=== PATIENT | male | born 1990 | race American Indian/Alaskan Native ===

== ENCOUNTER 2020-06-24 04:40 | Inpatient (IN) | payer OTHER ==
[2020-06-24] MEDS ORDERED: NITROGLYCERIN 0.4 MG TAB SUBL SL ONE (04:51)
--- NOTE | 2020-06-24 05:20 | XRay Report ---
CHEST 1 VIEW INDICATION: CP COMPARISON: None FINDINGS: Support devices: None Heart: Normal Lungs/Pleura: No acute pulmonary or pleural findings. IMPRESSION: 1. No acute disease. Signer Name: Suresh Tolbert MD Signed: 06/24/2020 5:15 AM Workstation Name: [id number]
--- NOTE | 2020-06-24 05:20 | Emergency Department Report ---
<RONNIE العلي - Last Filed: 06/24/20 07:52> ED Chest Pain HPI - General Chief Complaint: Chest Pain Stated Complaint: CHEST PAIN Time Seen by Provider: 06/24/20 04:49 - Related Data Allergies Allergy/AdvReac Type Severity Reaction Status Date / Time ibuprofen Allergy Itching Verified 06/24/20 08:52 ED Course - Reevaluation(s) Reevaluation #1: 06/24/20 07:52 One of our paramedics it walk past the patient's room and her gym make a loud noise. Patient did not appear to have a brief episode that appeared to be a tonic-clonic seizure. Patient's head slumped to the side and he stopped moving and his monitor showed V. fib. Tobacco Stripper Hand checked pulse at the carotid and femoral region and felt no pulse. Patient was defibrillated once and immediately regained pulse. He then jerked violently and appeared to have a approximately 10-second seizure. Patient was placed on a nonrebreather. Blood pressure and heart rate were adequate. Was setting up to intubate the patient to protect his airway but before intubation I did tap the patient on his chest and asked his name and he stated his full name. So we will hold off on intubation. Patient is admitting Has been called and is at bedside. ED Medical Decision Making - Lab Data Result diagrams: 06/24/20 05:24 06/24/20 05:24 ED Disposition Clinical Impression: Acute chest pain, Angina at rest, Hypertensive urgency Disposition: [id number] OP ADMIT IP TO THIS HOSP Condition: Serious <JUSTIN GUEVARA - Last Filed: 06/24/20 10:35> ED Chest Pain HPI - General Source: patient Mode of arrival: Stretcher Limitations: No Limitations - History of Present Illness Initial Comments: This is a 30-year-old -Syrian male who presents to the emergency department via EMS from home with complaint of midsternal to left-sided chest pain that started around 3 AM and woke him from sleep. He describes the chest pain as sharp in nature, 10 out of 10 in intensity and it does not radiate. He has some mild shortness of breath. This is also associated with some nausea with an episode of vomiting. The patient received a full dose aspirin in route with EMS. The patient is a former smoker. He presents with extremely elevated blood pressure, although the patient had some hypotension with EMS initially. The patient's mother from an [place] at the age of 41. He is an occasional marijuana smoker but denies any other illicit drug use. No recent travel or sick contacts at home. Heart Score - HEART Score History: Moderately suspicious EKG: Non-specific Age: < 45 Risk factors: 1-2 risk factors Troponin: 1-3x normal limit HEART Score: 4 - EKG Read Time Time EKG Completed: 04:45 EKG Read Time: 04:46 - Critical Actions Critical Actions: 4-6 pts:12-16.6% risk of adverse cardiac event. Should be admitted ED Review of Systems ROS: Stated complaint: CHEST PAIN Other details as noted in HPI Comment: All other systems reviewed and negative Constitutional: denies: chills, fever Eyes: denies: eye pain, vision change ENT: denies: ear pain, throat pain Respiratory: shortness of breath. denies: cough Cardiovascular: chest pain. denies: edema Gastrointestinal: nausea, vomiting. denies: abdominal pain Genitourinary: denies: dysuria, discharge Musculoskeletal: denies: back pain, arthralgia Skin: denies: rash, lesions Neurological: denies: headache, weakness ED Past Medical Hx - Past Medical History Previous Medical History?: Yes Hx Hypertension: Yes - Surgical History Past Surgical History?: Yes Hx Appendectomy: Yes - Social History Smoking Status: Former Smoker Substance Use Type: Marijuana ED Physical Exam - General Limitations: No Limitations - Other Other exam information: GENERAL: The patient is well-developed well-nourished. He appears uncomfortable due to pain. HENT: Normocephalic. Atraumatic. Patient has moist mucous membranes. EYES: Extraocular motions are intact. NECK: Supple. Trachea is midline. CHEST/LUNGS: Clear to auscultation. Mild tachypnea but no accessory muscle use. There is no respiratory distress noted. Chest pain is not reproducible to palpation. HEART/CARDIOVASCULAR: Regular. There is no tachycardia. There is no murmur. ABDOMEN: Abdomen is soft, nontender. Patient has normal bowel sounds. SKIN: Skin is warm and dry. NEURO: The patient is awake, alert, and oriented. The patient is cooperative. Normal speech. MUSCULOSKELETAL: There is no tenderness or deformity. There is no limitation range of motion. ED Course Vital Signs 04/04/1506/24/20 06/24/20 04:42 04:46 05:04 Pulse Rate 58 L 59 L 51 L Respiratory 16 37 H 20 Rate Blood Pressure 183/136 Blood Pressure [Left] O2 Sat by Pulse 100 100 100 Oximetry 06/24/20 06/24/20 06/24/20 05:06 05:08 05:10 Pulse Rate 58 L 64 48 L Respiratory 11 L 14 20 Rate Blood Pressure Blood Pressure [Left] O2 Sat by Pulse 100 100 100 Oximetry 06/24/20 06/24/20 06/24/20 05:12 05:16 05:20 Pulse Rate 53 L 57 L 56 L Respiratory 17 11 L Rate Blood Pressure 179/124 165/121 Blood Pressure [Left] O2 Sat by Pulse 100 100 Oximetry 06/24/20 06/24/20 06/24/20 05:30 05:46 06:00 Pulse Rate 73 51 L 47 L Respiratory 16 18 19 Rate Blood Pressure 165/121 176/127 156/110 Blood Pressure [Left] O2 Sat by Pulse 99 100 100 Oximetry 06/24/20 06/24/20 06/24/20 06:16 06:26 06:30 Pulse Rate 48 L 48 L 62 Respiratory 21 18 19 Rate Blood Pressure 172/120 169/118 169/118 Blood Pressure [Left] O2 Sat by Pulse 100 100 100 Oximetry 06/24/20 06/24/20 06/24/20 06:46 07:00 07:16 Pulse Rate 64 64 62 Respiratory 27 H 26 H 23 Rate Blood Pressure 172/120 158/93 158/107 Blood Pressure [Left] O2 Sat by Pulse 100 100 100 Oximetry 06/24/20 06/24/20 06/24/20 07:30 07:38 07:40 Pulse Rate 70 130 H 212 H Respiratory 15 26 H Rate Blood Pressure 159/107 168/117 Blood Pressure [Left] O2 Sat by Pulse 100 Oximetry 06/24/20 06/24/20 06/24/20 07:50 08:00 08:05 Pulse Rate 67 69 Respiratory 22 26 H 24 Rate Blood Pressure 156/93 Blood Pressure 146/103 [Left] O2 Sat by Pulse 100 100 100 Oximetry 06/24/20 06/24/20 08:34 08:53 Pulse Rate 70 70 Respiratory 16 16 Rate Blood Pressure Blood Pressure 151/100 151/100 [Left] O2 Sat by Pulse 100 100 Oximetry - Consultations Consultation #1: 06/24/20 04:55 The EKG sent by EMS showed ST elevations to the anterolateral leads. This EKG was sent to the newspaper reporter composition weatherboard installer, Dr Barriga, who did not feel it was consistent with a ST elevation ME. When the patient arrived we did o ur own EKG that appeared very similar with the same areas of ST elevation. I sent the second EKG to Dr Barriga and I spoke with him again to let him know the patient's risk factors include a family history in which his mother from an [place] at 41 years old. He once again did not feel this EKG was consistent with an ME and we do not need to activate the lift slab operator for a STEMI. LIT score - Lit Score Age > 65: (0) No Aspirin use within the Past 7 Days: (1) Yes 3 or more CAD Risk Factors: (0) No 2 or more Angina events in past 24 hrs: (1) Yes Known CAD with more than 50% Stenosis: (0) No Elevated Cardiac Markers: (1) Yes ST Deviation Greater than 0.5mm: (1) Yes LIT Score: 4 ED Medical Decision Making - Lab Data Result diagrams: 06/24/20 05:24 06/24/20 05:24 - EKG Data -: EKG Interpreted by Me EKG shows normal: sinus rhythm (PACs), axis (Left axis deviation), intervals, QRS complexes (Q waves to the anteroseptal leads), ST-T waves (ST elevation to the anterolateral leads) Rate: normal - EKG Data When compared to previous EKG there are: previous EKG unavailable Interpretation: other (Sinus rhythm with a rate of 63 bpm. Left axis deviation. Q waves to the anteroseptal leads. ST elevations to the anterolateral leads.) 06/24/20 05:19 EKG discussed with the newspaper reporter, Dr. Barriga, who does not feel that this is consistent with an ST elevation ME. - Radiology Data Radiology results: image reviewed interpreted by me: Chest x-ray does not show any pneumonia, pleural effusion, pneumothorax or any acute process. - Medical Decision Making This patient presented to the ED via EMS after waking up with mid-sternal to left sided chest pain about 3 AM or so. The initial EKG showed anterolateral ST elevations and was sent by EMS for review. Interventional cardiology composition weatherboard installer took a look at the EKG and did not feel it was consistent with a STEMI. The patient arrived and an EKG was immediately done and it looked very similar to the EKG done by EMS. This EKG, along with the patient's past medical history and family history were again shared with interventional cardiology, but they did not feel it was a STEMI and no lift slab operator activation at that time. The patient was given a SL Nitro without much relief of his blood pressure or pain. He was then given a dose of IV analgesia for his pain, and a dose of IV Hydralazine for his hypertension, with some improvement. Chest x-ray did not show any pneumonia, pleural effusions or pneumothorax. The patient's labs have been most unremarkable thus far including CBC, BMP and the first troponin came back equivocal at 0.021. He has a heart score of 4 and a moderate LIT score. He will be admitted to the hospital for further evaluation and treatment. A cardiology consult has been placed. The patient has been accepted for admission by the hospitalist, Dr Keller. Critical care attestation.: If time is entered above; I have spent that time in minutes in the direct care of this critically ill patient, excluding procedure time. ED Disposition Is pt being admited?: Yes Time of Disposition: 06:44
[2020-06-24] MEDS ORDERED: ONDANSETRON 4 MG/2 ML INJ IV ONE (05:30)
[2020-06-24] MEDS ORDERED: MORPHINE 4 MG/1 ML INJ IV ONE (05:30)
[2020-06-24 06:07] LABS: Basophils # (Auto) 0.1 K/mm3 (0.0-0.1); Eosinophils # (Auto) 0.1 K/mm3 (0.0-0.4); Eosinophils % (Auto) 1.4 % (0.0-4.3); Hemoglobin 14.7 gm/dl (11.8-15.2); Lymphocytes # (Auto) 4.4 K/mm3 (1.2-5.4); Lymphocytes % (Auto) 49.5 % (13.4-35.0); Mean Corpuscular HGB Conc 35 % (32-34); Mean Corpuscular Volume 93 fl (84-94); Monocytes # (Auto) 0.8 K/mm3 (0.0-0.8); Platelet Count 402 K/mm3 (140-440); Red Blood Count 4.54 M/mm3 (3.65-5.03); Red Cell Distribution Width 13.1 % (13.2-15.2)
[2020-06-24 06:14] LABS: Alanine Aminotransferase 12 units/L (7-56); Albumin 4.2 g/dL (3.9-5); BUN/Creatinine Ratio 10; Blood Urea Nitrogen 8 mg/dL (9-20); Calcium 8.7 mg/dL (8.4-10.2); Hemolysis Index 9
[2020-06-24 06:19] LABS: INR 1.06 (0.87-1.13); Partial Thromboplastin Time 25.5 Sec. (24.2-36.6)
[2020-06-24] MEDS ORDERED: hydrALAZINE 20 MG/1 ML INJ IV ONE (06:21)
[2020-06-24] MEDS ORDERED: SUCCINYLCHOLINE CHLORIDE 200 MG/10 ML INJ MDV ONE (07:42)
[2020-06-24] MEDS ORDERED: ETOMIDATE 20 MG/10 ML INJ IV ONE ×2 (07:42→08:26)
[2020-06-24] MEDS ORDERED: SUCCINYLCHOLINE CHLORIDE 200 MG/10 ML INJ MDV IV ONE (08:27)
[2020-06-24] MEDS ORDERED: AMIODARONE 150 MG/3 ML INJ IV ONE ×2 (08:34→09:10)
--- NOTE | 2020-06-24 08:35 | History and Physical Report ---
History of Present Illness Date of examination: 06/24/20 Date of admission: 06/24/20 06:45 Chief complaint: cp History of present illness: 30-year-old -Senegalese male who presents to the emergency department via EMS from home with complaint of midsternal to left-sided chest pain that started around 3 AM and woke him from sleep. Per ER physician, he described the chest pain as sharp in nature, 10 out of 10 in intensity and it does not radiate. He also reported that he had some mild shortness of breath. This was associated with some nausea with an episode of vomiting. The patient received a full dose aspirin in route with EMS. The patient is a former smoker. He presented with extremely elevated blood pressure, although the patient had some hypotension with EMS initially. The patient's mother from an [place] at the age of 41. He is an occasional marijuana smoker but denies any other illicit drug use. While in the emergency room, patient was noted by the nurse to have V. fib arrest that lasted for approximately 45 seconds with status post defibrillation x1. ER physician reports patient had immediate ROSC and responded appropriately to q uestions. Upon my evaluation, patient was somnolent but follows all commands and responsive. Patient continued to complain of chest pain and no other complaints. Patient denies any fever chills. No cough or cold-like symptoms. Past History Past Medical History: No medical history Past Surgical History: No surgical history Social history: no significant social history Family history: CAD (Mother of an SC at 41) Medications and Allergies Allergies Allergy/AdvReac Type Severity Reaction Status Date / Time No Known Allergies Allergy Unverified 06/24/20 05:00 Active Meds: Active Medications Etomidate (Etomidate 20 Mg/10 Ml Inj) 20 mg IV ONCE ONE Stop: 06/24/20 08:27 Last Admin: 06/24/20 08:28 Dose: Not Given Documented by: Succinylcholine Chloride (Succinylcholine Chloride 200 Mg/10 Ml Inj Mdv) 100 mg IV ONCE ONE Stop: 06/24/20 08:28 Last Admin: 06/24/20 08:29 Dose: Not Given Documented by: Review of Systems All systems: negative Exam - Constitutional Vitals: Temp Pulse Resp BP Pulse Ox 69 24 146/103 100 06/24/20 08:05 06/24/20 08:05 06/24/20 08:05 06/24/20 08:05 General appearance: Present: no acute distress, well-nourished - EENT Eyes: Present: PERRL ENT: hearing intact, clear oral mucosa - Neck Neck: Present: supple, normal ROM - Respiratory Respiratory effort: normal Respiratory: bilateral: CTA - Cardiovascular Heart Sounds: Present: S1 & S2. Absent: rub, click - Extremities Extremities: pulses symmetrical, No edema Peripheral Pulses: within normal limits - Abdominal General gastrointestinal: Present: soft, non-tender, non-distended, normal bowel sounds Male genitourinary: Present: normal - Integumentary Integumentary: Present: clear, warm, dry - Musculoskeletal Musculoskeletal: gait normal, strength equal bilaterally - Psychiatric Psychiatric: appropriate mood/affect, intact judgment & insight - Neurologic Neurologic: CNII-XII intact, moves all extremities HEART Score - HEART Score EKG: Non-specific Age: < 45 Risk factors: 1-2 risk factors Troponin: Troponin T 0.021 ng/mL (0.00-0.029) 06/24/20 05:24 Troponin: 1-3x normal limit - Critical Actions Critical Actions: 4-6 pts:12-16.6% risk of adverse cardiac event. Should be admitted Results - Labs CBC & Chem 7: 06/24/20 05:24 06/24/20 05:24 Labs: Laboratory Last Values WBC 8.9 K/mm3 (4.5-11.0) 06/24/20 05:24 RBC 4.54 M/mm3 (3.65-5.03) 06/24/20 05:24 Hgb 14.7 gm/dl (11.8-15.2) 06/24/20 05:24 Hct 42.0 % (35.5-45.6) 06/24/20 05:24 MCV 93 fl (84-94) 06/24/20 05:24 MCH 33 pg (28-32) H 06/24/20 05:24 MCHC 35 % (32-34) H 06/24/20 05:24 RDW 13.1 % (13.2-15.2) L 06/24/20 05:24 Plt Count 402 K/mm3 (140-440) 06/24/20 05:24 Lymph % (Auto) 49.5 % (13.4-35.0) H 06/24/20 05:24 Lipscomb % (Auto) 9.0 % (0.0-7.3) H 06/24/20 05:24 Eos % (Auto) 1.4 % (0.0-4.3) 06/24/20 05:24 Baso % (Auto) 1.0 % (0.0-1.8) 06/24/20 05:24 Lymph # (Auto) 4.4 K/mm3 (1.2-5.4) 06/24/20 05:24 Lipscomb # (Auto) 0.8 K/mm3 (0.0-0.8) 06/24/20 05:24 Eos # (Auto) 0.1 K/mm3 (0.0-0.4) 06/24/20 05:24 Baso # (Auto) 0.1 K/mm3 (0.0-0.1) 06/24/20 05:24 Seg Neutrophils % 39.1 % (40.0-70.0) L 06/24/20 05:24 Seg Neutrophils # 3.5 K/mm3 (1.8-7.7) 06/24/20 05:24 PT 13.7 Sec. (12.2-14.9) 06/24/20 05:24 INR 1.06 (0.87-1.13) 06/24/20 05:24 APTT 25.5 Sec. (24.2-36.6) 06/24/20 05:24 Sodium 137 mmol/L (137-145) 06/24/20 05:24 Potassium 3.5 mmol/L (3.6-5.0) L 06/24/20 05:24 Chloride 101.9 mmol/L (98-107) 06/24/20 05:24 Carbon Dioxide 21 mmol/L (22-30) L 06/24/20 05:24 Anion Gap 18 mmol/L 06/24/20 05:24 BUN 8 mg/dL (9-20) L 06/24/20 05:24 Creatinine 0.8 mg/dL (0.8-1.3) 06/24/20 05:24 Estimated GFR > 60 ml/min 06/24/20 05:24 BUN/Creatinine Ratio 10 % 06/24/20 05:24 Glucose 137 mg/dL (75-100) H 06/24/20 05:24 Calcium 8.7 mg/dL (8.4-10.2) 06/24/20 05:24 Total Bilirubin 0.60 mg/dL (0.1-1.2) 06/24/20 05:24 AST 19 units/L (5-40) 06/24/20 05:24 ALT 12 units/L (7-56) 06/24/20 05:24 Alkaline Phosphatase 69 units/L (35-129) 06/24/20 05:24 Troponin T 0.021 ng/mL (0.00-0.029) 06/24/20 05:24 Total Protein 7.5 g/dL (6.3-8.2) 06/24/20 05:24 Albumin 4.2 g/dL (3.9-5) 06/24/20 05:24 Albumin/Globulin Ratio 1.3 % 06/24/20 05:24 Assessment and Plan Assessment and plan: V. fib arrest. Etiology is unknown. Cardiology consultation is pending. Admit to ICU for close monitoring now and start on amiodarone drip if okay with cardiology. Check echocardiogram Chest pain. Ischemic evaluation per cardiology. Patient has a strong family history with mother dying at age 41 of SC.
[2020-06-24] MEDS ORDERED: MIDAZOLAM 2 MG/2 ML INJ ONE (08:39)
[2020-06-24] MEDS ORDERED: HEPARIN/NS 5000 UNIT/500ML 1,000 ML IR ONE ×2 (08:39→09:15)
[2020-06-24] MEDS ORDERED: VERAPAMIL 5 MG/2 ML INJ ONE (08:40)
[2020-06-24] MEDS ORDERED: LIDOCAINE (2%) 20 MG/1 ML VIAL 20 ML MDV INFILTRATI ONE ×2 (08:40→09:15)
[2020-06-24] MEDS ORDERED: NITROGLYCERIN SYRINGE 3 ML ONE (08:40)
[2020-06-24] MEDS ORDERED: fentaNYL 100 MCG/2 ML INJ ONE (08:40)
[2020-06-24] MEDS ORDERED: ATROPINE 0.1% (1 MG/10 ML) CARDIAC SYRINGE ONE (08:41)
[2020-06-24] MEDS ORDERED: AMIODARONE 300 MG in DEXTROSE 5% IN WATER 100 ML IV STA (08:41)
[2020-06-24] MEDS ORDERED: EPINEPHrine 1 MG/10 ML SYRINGE ONE (08:41)
[2020-06-24] MEDS ORDERED: PHENYLEPHRINE/NS 1,000 MCG/10 ML SYRINGE (OR USE) IV ONE (08:41)
[2020-06-24 09:00] LABS: Chol/HDL Ratio 3.6 %
[2020-06-24] MEDS ORDERED: ETOMIDATE 20 MG/10 ML INJ IV SCH (09:00)
[2020-06-24] MEDS ORDERED: SODIUM CHLORIDE 0.9% 500 ML 500 ML IV SCH (09:00)
[2020-06-24] MEDS ORDERED: TIROFIBAN/NS 12,500 MCG/250 ML BAG IV ONE (09:10)
[2020-06-24] MEDS: HEPARIN 10,000 UNITS/10 ML VIAL ONE ×2 (09:10→09:25)
[2020-06-24] MEDS ORDERED: TIROFIBAN 12.5 MG/250 ML BOLUS (50 MCG/ML) IV ONE (09:20)
[2020-06-24] MEDS: AMIODARONE 900 MG in DEXTROSE 5% IN WATER 482 ML IV SCH (10:00)
[2020-06-24] MEDS ORDERED: HEPARIN/ 0.45% NACL DRIP 25,000 UNIT/500 ML BAG ONE (10:06)
--- NOTE | 2020-06-24 10:45 | Cardiac Catherization Report ---
INDICATION FOR PROCEDURE: The patient is a 30-year-old gentleman who presented to the ER with chest pain, had a VF arrest while in the Emergency Room. This occurred at approximately 8:00 a.m. The patient was cardioverted x 1 with return of spontaneous circulation, following all commands. He has a strong family history of premature heart disease. Mother had an [place] at 41. He smokes and uses marijuana. No other significant medical history is noted. I was first contacted by Dr. Betancur after the VF arrest. STEMI protocol was initiated. At this point, the patient rushed to the wood and wood products labourer. PROCEDURE IN DETAIL: The patient was seen by wood and wood products labourer in an urgent fashion. Prepped and draped in sterile fashion, 8 mL of 2% lidocaine used to anesthetize the right groin. A standard 6-Ukrainian sheath used to cannulate the right common femoral artery via modified Seldinger technique. All exchanges performed to exchange a J-tip guidewire. A 7-Ukrainian sheath placed in the right femoral vein via modified Seldinger technique. We turned our attention to left heart catheterization. IV heparin is given. Abnormal ACT confirmed. The patient loaded with aspirin. A JL4 catheter used to engage the left main. No dampening or ventricularization. Cineangiography performed in multiple projections. JR4 catheter used to cross the aortic valve under fluoroscopic guidance. Left ventriculography performed in 30 SALDAÑA and 30 WELSH projections via hand injections, catheter flushed. Manual pullback performed with continuous pressure monitoring. Catheter used to engage the right coronary. No dampening or ventricularization. Cineangiography performed in multiple projections. DATA: Aortic pressure is 130/80, LV pressure is 130, LVEDP of 41 mmHg. Left ventriculography reveals anterior hypokinesis, estimated ejection fraction of 40-45%. No evidence of aortic stenosis. CORONARY ANATOMY: Right coronary is a normal vessel, right dominant system. The left main without significant disease, bifurcates left anterior descending and left circumflex. The left circumflex is without significant disease. Left main is without significant disease. Atherothrombotic occlusion of the very proximal LAD with SUHA 0 flow. Obviously, this is the culprit vessel. Attention turned to PCI. At this point, again heparin, Plavix, aspirin loaded. An EBU 3.7 guide used to engage the left main without difficulty. Given thrombus burden and history of VF, a temporary venous pacemaker was placed under fluoroscopic guidance in the right ventricular apex as backup. I used a [place] wire to cross the lesion without difficulty. We used a 2.0 x 12 compliant balloon to predilate the lesion without difficulty. Eventually placed an [place] 3.0 x 22 drug-eluting stent at 12 ANTONIA for 30 seconds. Excellent angiographic result. Intravascular ultrasound was performed, multiple passes were made. SUHA 3 flow, no residual thrombus is identified. It should be noted that Aggrastat bolus was given as well. At this point, given anterior hypokinesis, VF arrest, and prolonged chest pain, placed an intraaortic balloon pump under fluoroscopic guidance. The patient is now clinically hemodynamically and electrically stable. He remains on heparin drip, IV amiodarone drip, aspirin and Plavix. We will initiate high dose statin therapy as well. CONCLUSIONS: 1. Acute atherothrombotic occlusion of proximal LAD complicated by VF cardiac arrest. Successful primary PCI IVUS guided placement of drug-eluting stent ([place] 3.0 x 22 mm) with excellent final angiographic and ultrasonographic results. No other significant coronary artery disease noted in the coronary tree. 2. Left ventriculography reveals anterior hypokinesis, estimated ejection fraction 40-45% with a markedly elevated LVEDP of 41 mmHg. 3. No evidence of aortic stenosis. 4. The patient was in sinus rhythm. Also had bouts of AIVR due to reperfusion injury. 5. Successful placement of right femoral venous access with a temporary venous pacemaker. This is removed post case. 6. Successful placement of intraaortic balloon pump under fluoroscopic guidance. Approximately 30 minutes of critical care time was spent after the case. The patient was having arrhythmias in the form of AIVR. The patient has been loaded with aspirin and Plavix. Continue IV heparin and amiodarone. He is clinically stable. I spoke with his father, Yovani Tapia at [phone]. Mr. Tapia is in [place]. He is abreast of the situation and will be traveling to [facility] to visit his son. The patient will be in the ICU and also discussed with hospitalist. The patient is clinically stable at this point. We will obviously continue to follow closely. Check an echocardiogram. Continue all aggressive measures. JOB# [id number] YOANDY/NTS
[2020-06-24] MEDS: HEPARIN/ 0.45% NACL DRIP 25,000 UNIT/500 ML BAG IV SCH (10:46)
[2020-06-24] MEDS ORDERED: HEPARIN 10,000 UNITS/10 ML VIAL IV PRN (10:47)
[2020-06-24] MEDS ORDERED: CLOPIDOGREL 300 MG TAB ONE (10:52)
[2020-06-24] MEDS ORDERED: ALUM-MAG HYDROXIDE-SIMETHICONE 200-200-20MG/5ML ORAL LIQD 30 ML ONE (10:52)
--- NOTE | 2020-06-24 11:12 | Consultation ---
CARDIOLOGY CONSULTATION REFERRING PHYSICIAN: Dr. Malcom Betancur. CHIEF COMPLAINT: Cardiac arrest. HISTORY OF PRESENT ILLNESS: The patient is a 30-year-old -Egyptian gentleman with unknown significant medical history aside from a very strong family history of heart disease. Mother at age 41 of an NE. Also, tobacco and marijuana use recently. At this point, the patient was evaluated with the ER with a questionable EKG initially at 4:00 a.m., continued to have chest pain and had a witnessed VF arrest at 8:00 a.m. quickly cardioverted x1 with resumption of spontaneous circulation awake and alert. I was at this time notified by Dr. Malcom Betancur. The patient was seen and examined. STEMI protocol initiated, IV heparin, IV amiodarone initiated. The patient is having 10/10 chest pain. PHYSICAL EXAMINATION: VITAL SIGNS: In the Emergency Room, his blood pressure is 140/100, respiratory rate 16, O2 sats 100. Pulse rates in the 70s. HEENT: Sclerae icteric. PERRLA. NECK: Supple, no masses, no JVD. CHEST: Clear to auscultation bilaterally. Good air movement. CARDIOVASCULAR: Regular rhythm, S1, S2. ABDOMEN: Soft, nontender, nondistended. Normoactive bowel sounds in 4 quadrants. No mass or bruits. EXTREMITIES: No cyanosis, clubbing, edema. Good peripheral pulses. SKIN: Intact. No rashes. EKG reveals diffuse ST elevation and ST depression in AVR. EKG after a cardioversion reveals hyperacute T waves and lateral ST elevation. LABORATORY DATA: WBC is 8.9, hemoglobin 14.7, hematocrit 42, platelets 402. Potassium 3.5. Troponin 0.129 initially, creatinine 0.8. LFTs are normal. ASSESSMENT AND PLAN: The patient is a 30-year-old -E[place]ian gentleman: 1. Chest pain with a ventricular fibrillation arrest, now with hyperacute T waves and anterolateral ST elevation. ST elevation myocardial infarction protocol was initiated. The patient will be taken to the dental laboratory assistant in an urgent fashion, loaded with IV amiodarone as well as heparin, aspirin given in the Emergency Room. Further plans contingent on catheterization results. JOB# [id number] SBM/NTS
--- NOTE | 2020-06-24 12:22 | Consultation ---
History of Present Illness Consult date: 06/24/20 Requesting physician: JIM BENSON Reason for consult: other (Cardiac Arrest with with ROSC) History of present illness: PULMONARY/CCM CONSULT NOTE (Full dictation # [id number]) Please see dictated notes for full details Past History Past Medical History: No medical history Past Surgical History: No surgical history Social history: no significant social history Family history: CAD (Mother of an CA at 41) Medications and Allergies Allergies Allergy/AdvReac Type Severity Reaction Status Date / Time ibuprofen Allergy Itching Verified 06/24/20 08:52 Active Meds: Active Medications Hydrocodone Bitart/Acetaminophen (Hydrocodone/Acetaminophen 5-325 Mg Tab) 1 each PO Q6H PRN PRN Reason: Pain, Moderate (4-6) Aspirin (Aspirin Ec 325 Mg Tab) 325 mg PO QDAY EBONY Atorvastatin Calcium (Atorvastatin 40 Mg Tab) 80 mg PO QHS EBONY Clopidogrel Bisulfate (Clopidogrel 75 Mg Tab) 75 mg PO QDAY EBONY Heparin Sodium (Porcine) (Heparin 10,000 Units/10 Ml Vial) 3,300 unit 40 unit/kg (3300 unit) IV Q6H PRN PRN Reason: Anti-Xa Assay<0.1 units/ml Sodium Chloride (Nacl 0.9% 500 Ml) 500 mls @ 50 mls/hr IV DIRECT EBONY Stop: 06/24/20 18:59 Amiodarone HCl 900 mg/ (Dextrose) 500 mls @ 33.333 mls/hr IV DIRECT EBONY; Protocol Sodium Chloride (Sodium Chloride 0.9% 10 Ml Flush Syringe) 10 ml IV BID EBONY Sodium Chloride (Sodium Chloride 0.9% 10 Ml Flush Syringe) 10 ml IV PRN PRN PRN Reason: LINE FLUSH Physical Examination Vital signs: Vital Signs Pulse Resp Pulse Ox 58 L 16 100 06/24/20 04:42 06/24/20 04:42 06/24/20 04:42 Results - Laboratory Findings CBC and BMP: 06/24/20 05:24 06/24/20 05:24 PT/INR, D-dimer PT 13.7 Sec. (12.2-14.9) 06/24/20 05:24 INR 1.06 (0.87-1.13) 06/24/20 05:24 Abnormal lab findings: Abnormal Labs 06/24/20 06/24/20 06/24/20 05:24 05:24 07:57 MCH 33 H MCHC 35 H RDW 13.1 L Lymph % (Auto) 49.5 H [place] % (Auto) 9.0 H Seg Neutrophils % 39.1 L Potassium 3.5 L Carbon Dioxide 21 L BUN 8 L Glucose 137 H Troponin T 0.129 H* D Triglycerides 185 H
--- NOTE | 2020-06-24 14:33 | Consultation ---
PULMONARY CRITICAL CARE CONSULT NOTE CONSULTING PHYSICIAN: Malcom Betancur MD REASON FOR CONSULTATION: Cardiac arrest with return of spontaneous circulation as well as hypertensive emergency. CHIEF COMPLAINT AND HISTORY OF PRESENT ILLNESS: The patient is a 30-year-old male, obese, came into the Emergency Room via emergency medical services with complaint of midsternal to left-sided chest pressure that woke him out of his sleep around 3:00 a.m., it was sharp in nature 01/02. He denied nausea or vomiting. He did have some shortness of breath. He denied fevers or chills. He admits to definitely a 5+ pack year tobacco smoking history, described himself as a former smoker, but could not really tell me when he stopped. He was found to have severely elevated blood pressures in the Emergency Room, although he was reportedly initially hypotensive when the emergency medical services got in. He does have a significant family history, his mom from coronary artery disease, myocardial infarction at the age of 41. It looks like he was being evaluated in the Emergency Room some time after the presentation, ship's electronic warfare officer walking past the room, had strange sound come out of his room. He noticed the patient had a possible tonic-clonic seizure. He has had then slumped to the side. He stopped moving. His monitor showed a ventricular fibrillation, ACLS protocol was started after they could not feel the femoral pulse. He was defibrillated with return of spontaneous circulation and ultimately he was taken into the cardiac cath lab technologist for evaluation. Post-cardiac catheterization, he comes back into the Intensive Care Unit on intraaortic balloon pump. Findings included an acute atherothrombotic occlusion of the proximal LAD, complicated by ventricular fibrillation cardiac arrest, this was successfully stented. He had a reduced ejection fraction of 40-45% with significantly elevated left ventricular end-diastolic pressure of 41 mmHg. He has a temporary venous pacemaker also placed as well as the intraaortic balloon pump. When I stopped by to see him, he was lying in bed, a 2D echo has been done. He was actually trying to get on his telephone and the nature of his conversation seemed somewhat stressful. I did encourage him to please leave his telephone and not use it in the Intensive Care Unit. He denied any vomiting or overt aspiration at home. The above really is as much of the history of presentation as I have. PAST MEDICAL HISTORY: Denies. PAST SURGICAL HISTORY: Denies. MEDICATIONS: He was on at the time I stopped by to see him, according to medication administration record included the following: [place] 5/325 one tablet p.o. q. 6 hours p.r.n. moderate pain, amiodarone drip was going at 1 mg per minute, aspirin 325 mg p.o. daily, Lipitor 80 mg p.o. at bedtime, Plavix 75 mg p.o. daily, heparin IV drip was going. He was also on intraaortic balloon pump on a 1:1 ratio. ALLERGIES: IBUPROFEN. NATURE OF THIS ALLERGY IS UNKNOWN. DIET: Obese gentleman. Denies acute weight loss or gain in the preceding few weeks to months. FAMILY AND SOCIAL HISTORY: Lives in the community, has about a 5+ pack year tobacco smoking history. Denies alcohol or illicit drug use or abuse. FAMILY HISTORY: Otherwise, noncontributory. REVIEW OF SYSTEMS: He had an episode of loss of consciousness in the Emergency Room, possible seizure associated with that. Denies gross hematochezia or melena. Denies gross hematuria or dysuria. No hematemesis. No hemoptysis. He denied palpitations. He denied any headache. He denies any new onset focal weakness. Denies heat or cold intolerance. Denied polydipsia, polyuria. Complete 13-system review of systems obtained. Pertinent positives and/or negatives as in body of history above, otherwise noncontributory. PHYSICAL EXAMINATION: VITAL SIGNS: On examination at presentation in the Emergency Room, first temperature I see is 97.6 degrees Fahrenheit, pulse was 58, respiratory rate was 16, blood pressure 183/136, oxygen sats are 100%, inspired oxygen concentration at that time was not recorded. When I stopped by to see him, O2 sats were 100%, but that was on 3 liters nasal cannula. GENERAL: He is a young looking male, obese, normocephalic, atraumatic, resting in bed with mildly increased respiratory effort at rest. HEAD, EYES, EARS, NOSE AND THROAT: Anicteric. No conjunctival erythema. Oropharynx was moist. No gross jugular venous distention, no thyromegaly. NECK: Grossly, there were no palpable lymph nodes in the supraclavicular or submandibular lymph node chains. LUNGS: Auscultation of both lung fitzgerald unremarkable, clear. Good bilateral air movement. HEART: Heart sounds 1 and 2 are heard. They were regular in rate and rhythm at time of my evaluation without overt rubs or murmurs. ABDOMEN: Soft, flat. Bowel sounds are positive, nontender, no palpable hepatosplenomegaly. EXTREMITIES: Without overt digital clubbing or cyanosis, no pedal edema. Pedal pulses are 2+ bilaterally. He has a right groin intraaortic balloon pump, femoral sheath in place. No significant bleeding around the insertion site. NEUROLOGIC: Pupils are equal, round, about 4 mm, reactive to light. Extraocular muscle movements were intact. He moves all 4 extremities spontaneously. SKIN: Normal turgor in the areas examined without overt cellulitis or rash. Please see the wound care nurse's notes for full description of his skin. PSYCHIATRIC: Mood was normal. Affect was somewhat anxious. He had intact judgment and insight. LABORATORY DATA: From my review are as follows: Admission white count 8900, hemoglobin 14.7, hematocrit 42.0, platelet count 402. INR 1.06. Serum sodium was 137, potassium 3.5, chloride 102, bicarbonate 21, BUN 8, creatinine 0.8, glucose was 137. Troponin was up at 0.129. LDL cholesterol was 108. No microbiology studies. A chest x-ray was done, it is a clear chest x-ray, normal chest x-ray for his age. ASSESSMENT: 1. Acute coronary syndrome. 2. Cardiac arrest with return of spontaneous circulation. 3. Ventricular fibrillation arrest. 4. Hypertension, uncontrolled. 5. Obesity. 6. Tobacco use disorder. 7. Mild hypokalemia at presentation. PLAN: I have strongly counseled continued tobacco abstinence, in particular I have also explained to him and offered that they are ancillary aids to help with quitting if he does want that. He assures me he has quit smoking at this point in time. Second, really I have explained that he needs to keep his telephone out of sight while he is in the intensive care unit as it is clearly is increasing his anxiety level and could have advance cardiac events. I have asked his nurse to go ahead and please do keep the phone in the room, but isolated from out of his reach. We will continue with intraaortic balloon pump. Thankfully, he is also not needing any vasopressor support. A 2D echo has been done, will be followed. Oxygen will be weaned to keep sats greater than or equal to about 90-92%. Aspiration precautions will be maintained. I will continue current antiplatelet therapy. I will be putting him on GI prophylaxis, especially with him being on antiplatelet therapy. Flu and pneumonia vaccination will be addressed per protocol. Second prevention is ongoing and I will defer to the Cardiology and primary team. Flu and pneumonia vaccination will be addressed per protocol. Thank you very much for the consult. We will follow along and make further recommendations as picture progresses/becomes clearer. I should also mention p.r.n. analgesia will be per the pain score. He is critically ill on life-sustaining interventions including intraaortic balloon pump at high risk of from cardiopulmonary system decompensation. At this time, I spent about 35-40 minutes of critical care time without overlap and excluding any procedural time that may be necessary. JOB# [id number] SCHUYLER/ROSLYN MORENO
[2020-06-24 14:39] LABS: Hematocrit 44.4 % (35.5-45.6); Hemoglobin 15.3 gm/dl (11.8-15.2)
[2020-06-24 14:55] LABS: INR 1.05 (0.87-1.13)
[2020-06-24 15:52] LABS: Partial Thromboplastin Time 96.5 Sec. (24.2-36.6)
[2020-06-24 19:08] LABS: Basophils % (Auto) 0.3 % (0.0-1.8); Eosinophils % (Auto) 0.1 % (0.0-4.3); Hematocrit 42.9 % (35.5-45.6); Hemoglobin 14.9 gm/dl (11.8-15.2); Lymphocytes # (Auto) 2.7 K/mm3 (1.2-5.4); Lymphocytes % (Auto) 25.5 % (13.4-35.0); Mean Corpuscular HGB Conc 35 % (32-34); Mean Corpuscular Volume 93 fl (84-94); Monocytes # (Auto) 0.9 K/mm3 (0.0-0.8); Monocytes % (Auto) 8.7 % (0.0-7.3); Platelet Count 354 K/mm3 (140-440); Red Blood Count 4.59 M/mm3 (3.65-5.03); Red Cell Distribution Width 13.3 % (13.2-15.2)
[2020-06-24 19:27] LABS: Alanine Aminotransferase 67 units/L (7-56); Albumin 4.1 g/dL (3.9-5); BUN/Creatinine Ratio 10; Blood Urea Nitrogen 9 mg/dL (9-20); Calcium 8.7 mg/dL (8.4-10.2); Hemolysis Index 19
[2020-06-24] MEDS: FAMOTIDINE 20 MG TAB PO SCH (21:54)
--- NOTE | 2020-06-25 04:22 | XRay Report ---
CHEST 1 VIEW INDICATION: post pci COMPARISON: One day prior. FINDINGS: Support devices: None Heart: Normal and unchanged Lungs/Pleura: No acute pulmonary or pleural findings. IMPRESSION: 1. No acute disease and no interval change. Signer Name: Suresh Tolbert MD Signed: 06/25/2020 4:17 AM Workstation Name: [id number]
[2020-06-25 05:48] LABS: Basophils # (Auto) 0.1 K/mm3 (0.0-0.1); Basophils % (Auto) 0.6 % (0.0-1.8); Eosinophils % (Auto) 0.4 % (0.0-4.3); Hematocrit 41.6 % (35.5-45.6); Hemoglobin 14.1 gm/dl (11.8-15.2); Lymphocytes % (Auto) 31.7 % (13.4-35.0); Mean Corpuscular HGB Conc 34 % (32-34); Mean Corpuscular Volume 93 fl (84-94); Monocytes # (Auto) 1.1 K/mm3 (0.0-0.8); Monocytes % (Auto) 11.1 % (0.0-7.3); Platelet Count 306 K/mm3 (140-440); Red Cell Distribution Width 13.6 % (13.2-15.2)
[2020-06-25 05:49] LABS: BUN/Creatinine Ratio 9; Blood Urea Nitrogen 8 mg/dL (9-20); Calcium 8.3 mg/dL (8.4-10.2); Hemolysis Index 18
[2020-06-25] MEDS: AMIODARONE 900 MG in DEXTROSE 5% IN WATER 482 ML IV SCH (07:35)
[2020-06-25] MEDS: POTASSIUM CHLORIDE 20 MEQ 20 MEQ/100 ML BAG IV SCH ×2 (08:57→10:03)
[2020-06-25] MEDS: HYDROcodone/ACETAMINOPHEN 5-325 MG TAB PO PRN ×3 (09:39→21:26)
[2020-06-25] MEDS: ASPIRIN EC 325 MG TAB PO SCH (10:03)
[2020-06-25] MEDS: CLOPIDOGREL 75 MG TAB PO SCH (10:03)
[2020-06-25] MEDS: HEPARIN/ 0.45% NACL DRIP 25,000 UNIT/500 ML BAG IV SCH (10:48)
--- NOTE | 2020-06-25 11:29 | Progress Note ---
Assessment and Plan Wean IABP and discontinue today. D/c heparin gtt 1 hour prior to discontinuation of IABP. D/c IV amio. Consider addition of BB if BP and HR remains stable after discontinuation of IABP. Cont ASA 325, plavix, lipitor. Replete K+. Await echo. Cont close observation in CCU today with likely tx to telemetry tomorrow. Will follow. The patient has been seen in conjunction with Dr. John Peters who agrees with the assessment and plan of care. - Patient Problems (1) STEMI (ST elevation myocardial infarction) Current Visit: Yes Status: Acute (2) VF (ventricular fibrillation) Current Visit: Yes Status: Acute (3) Cardiac arrest Current Visit: Yes Status: Acute (4) CAD (coronary artery disease) Current Visit: Yes Status: Chronic (5) Stented coronary artery Current Visit: Yes Status: Chronic (6) HTN (hypertension) Current Visit: Yes Status: Chronic Subjective Date of service: 06/25/20 Principal diagnosis: STEMI Interval history: pt resting comfortably in bed, no current cardiac complaints. tele reviewed - in SR HR 60s -70s, no acute events overnight. VSS. IABP in place via right groin - IABP settings 1:1 with 100% augmentation. right groin LHC site with some minimal oozing noted from IABP, no hematoma noted. heparin gtt infusing. Objective Last Vital Signs Temp 98.2 F 06/25/20 11:00 Pulse 67 06/25/20 11:00 Resp 14 06/25/20 11:00 BP 139/94 06/25/20 11:00 Pulse Ox 100 06/25/20 11:00 - Physical Examination General: No Apparent Distress HEENT: Positive: PERRL, Normocephaly, Mucus Membranes Moist Neck: Positive: neck supple, trachea midline Cardiac: Positive: Reg Rate and Rhythm, S1/S2 Lungs: Positive: Decreased Breath Sounds Neuro: Positive: Grossly Intact Abdomen: Negative: Tender Skin: Negative: Rash Incision: Cardiac Cath Site (right groin LHC site IABP in place, site with minimal oozing, no hematoma) Musculoskeletal: No Pain Extremities: Present: upper extr. pulses, lower extr. pulses. Absent: edema - Labs and Meds Cardiac Enzymes 06/24/20 Range/Units 18:50 AST 368 H (5-40) units/L Coagulation 06/24/20 Range/Units 13:22 PT 13.6 (12.2-14.9) Sec. INR 1.05 (0.87-1.13) APTT 96.5 H* (24.2-36.6) Sec. CBC 06/24/20 06/24/20 06/25/20 Range/Units 13:22 18:50 04:42 WBC 10.5 9.5 (4.5-11.0) K/mm3 RBC 4.59 4.50 (3.65-5.03) M/mm3 Hgb 15.3 H 14.9 14.1 (11.8-15.2) gm/dl Hct 44.4 42.9 41.6 (35.5-45.6) % Plt Count 384 354 306 (140-440) K/mm3 Lymph # (Auto) 2.7 3.0 (1.2-5.4) K/mm3 [place] # (Auto) 0.9 H 1.1 H (0.0-0.8) K/mm3 Eos # (Auto) 0.0 0.0 (0.0-0.4) K/mm3 Baso # (Auto) 0.0 0.1 (0.0-0.1) K/mm3 Comprehensive Metabolic Panel 06/24/20 06/25/20 Range/Units 18:50 04:42 Sodium 133 L 135 L (137-145) mmol/L Potassium 4.0 3.4 L (3.6-5.0) mmol/L Chloride 98.8 98.9 (98-107) mmol/L Carbon Dioxide 22 26 (22-30) mmol/L BUN 9 8 L (9-20) mg/dL Creatinine 0.9 0.9 (0.8-1.3) mg/dL Glucose 144 H 121 H (75-100) mg/dL Calcium 8.7 8.3 L (8.4-10.2) mg/dL AST 368 H (5-40) units/L ALT 67 H (7-56) units/L Alkaline Phosphatase 67 (35-129) units/L Total Protein 7.4 (6.3-8.2) g/dL Albumin 4.1 (3.9-5) g/dL - Imaging and Cardiology EKG: report reviewed, image reviewed Echo: pending - Telemetry EKG Rhythm: Sinus Rhythm
--- NOTE | 2020-06-25 12:31 | Progress Note ---
Assessment and Plan STEMI Cardiac arrest with return of spontaneous circulation. Ventricular fibrillation arrest. Hypertension, uncontrolled. Obesity. Tobacco use disorder. Mild hypokalemia at presentation - tentatively to pull IABP - will watch in [facility] thereafter withy tentative transfer l;ater if OK witrh cards - continue care as below otherwise; - accuchecks with glycemic control per SSI (While critically ill target blood glucose of 140-180 mg/dL; avoid hypoglycemia) - sedation prn for target RASS 0 to -1 - continue to wean supplemental oxygen for target O2 sat's > 90% acutely - prn bronchodilators with pulmonary hygiene per RT - avoid nephrotoxins, renally dose all medications - avoid benzodiazepine's, reduce the possibility of delirium - AB's per ID rec's - prn analgesia per pain score - Maintenance of sleep-wake cycle, avoid delirium - continue enteral nutritional support at goal rate as tolerated - G.I. & VTE prophylaxis - PT/OT/ROM exercises - continue mobility protocols for pressure ulcer prophylaxis - Monitor hemodynamics closely - continue other care per attending / other consultants - discharge planning ongoing concurrently .... Re-evaluate in am & prn CONDITION: CRITICAL PROGNOSIS: GUARDED CODE STATUS: FULL CODE The high probability of a clinically significant, sudden or life-threatening deterioration of the [respiratory & cardiovascular] system(s) required my full and direct attention, intervention and personal management. The aggregate critical care time was [32] minutes without overlap. Time includes spent on; [x] Data Review and interpretation [x] Patient assessment and monitoring of vital signs [x] Documentation [x] Medication orders and management Subjective Date of service: 06/25/20 Principal diagnosis: STEMI; ACS; Cardiac arrest; V-fib; arrest; HTN; Obesity; Tobacco Abuse Interval history: Patient is seen today for: STEMI; Cardiac arrest with ROSC; Ventricular fibrillation arrest; HTN; Obesity; Tobacco use disorder; Mild hypokalemia Seen and examined at bedside; 24hour events reviewed; nursing and respiratory care staff consulted; no adverse overnight events reported to me; resting peacefully in bed; looks and feels better; IABP to be pulled today; denies acute chest pains or palpitations Objective Vital Signs - 12hr 06/25/20 06/25/20 06/25/20 00:30 00:45 01:00 Temperature Pulse Rate 60 61 60 Pulse Rate [ Left Dorsalis Pedis] Pulse Rate [ Left Radial] Pulse Rate [ Right Dorsalis Pedis] Pulse Rate [ Right Radial] Respiratory 24 24 27 H Rate Blood Pressure 136/101 138/88 138/88 O2 Sat by Pulse 97 96 98 Oximetry 06/25/20 06/25/20 06/25/20 01:15 01:31 01:45 Temperature Pulse Rate 66 65 64 Pulse Rate [ Left Dorsalis Pedis] Pulse Rate [ Left Radial] Pulse Rate [ Right Dorsalis Pedis] Pulse Rate [ Right Radial] Respiratory 26 H 25 H 20 Rate Blood Pressure 144/108 138/108 137/99 O2 Sat by Pulse 97 96 98 Oximetry 06/25/20 06/25/20 06/25/20 02:00 02:15 02:23 Temperature Pulse Rate 59 L 64 64 Pulse Rate [ Left Dorsalis Pedis] Pulse Rate [ Left Radial] Pulse Rate [ Right Dorsalis Pedis] Pulse Rate [ Right Radial] Respiratory 25 H 23 Rate Blood Pressure 141/106 139/113 O2 Sat by Pulse 98 97 Oximetry 06/25/20 06/25/20 06/25/20 02:31 02:45 03:00 Temperature 98.2 F Pulse Rate 64 67 67 Pulse Rate [ Left Dorsalis Pedis] Pulse Rate [ Left Radial] Pulse Rate [ Right Dorsalis Pedis] Pulse Rate [ Right Radial] Respiratory 21 24 20 Rate Blood Pressure 141/114 136/105 137/104 O2 Sat by Pulse 97 96 96 Oximetry 06/25/20 06/25/20 06/25/20 03:15 03:31 03:45 Temperature Pulse Rate 63 63 61 Pulse Rate [ Left Dorsalis Pedis] Pulse Rate [ Left Radial] Pulse Rate [ Right Dorsalis Pedis] Pulse Rate [ Right Radial] Respiratory 21 21 20 Rate Blood Pressure 130/95 130/85 128/102 O2 Sat by Pulse 96 97 99 Oximetry 06/25/20 06/25/20 06/25/20 04:00 04:15 04:31 Temperature 98.2 F Pulse Rate 60 65 74 Pulse Rate [ Left Dorsalis Pedis] Pulse Rate [ Left Radial] Pulse Rate [ Right Dorsalis Pedis] Pulse Rate [ Right Radial] Respiratory 26 H 22 21 Rate Blood Pressure 136/102 140/103 141/107 O2 Sat by Pulse 97 98 99 Oximetry 06/25/20 06/25/20 06/25/20 04:45 05:00 05:01 Temperature Pulse Rate 71 60 Pulse Rate [ Left Dorsalis Pedis] Pulse Rate [ Left Radial] Pulse Rate [ Right Dorsalis Pedis] Pulse Rate [ Right Radial] Respiratory 22 22 Rate Blood Pressure 142/110 134/97 O2 Sat by Pulse 98 97 97 Oximetry 06/25/20 06/25/20 06/25/20 05:15 05:30 05:45 Temperature Pulse Rate 60 61 59 L Pulse Rate [ Left Dorsalis Pedis] Pulse Rate [ Left Radial] Pulse Rate [ Right Dorsalis Pedis] Pulse Rate [ Right Radial] Respiratory 21 21 24 Rate Blood Pressure 130/90 135/84 133/91 O2 Sat by Pulse 97 97 97 Oximetry 06/25/20 06/25/20 06/25/20 06:00 06:15 06:23 Temperature Pulse Rate 57 L 55 L 58 L Pulse Rate [ Left Dorsalis Pedis] Pulse Rate [ Left Radial] Pulse Rate [ Right Dorsalis Pedis] Pulse Rate [ Right Radial] Respiratory 26 H 22 Rate Blood Pressure 134/99 137/107 O2 Sat by Pulse 97 97 Oximetry 06/25/20 06/25/20 06/25/20 06:30 06:45 07:00 Temperature 98.2 F Pulse Rate 60 61 60 Pulse Rate [ Left Dorsalis Pedis] Pulse Rate [ Left Radial] Pulse Rate [ Right Dorsalis Pedis] Pulse Rate [ Right Radial] Respiratory 23 24 23 Rate Blood Pressure 138/94 139/95 142/96 O2 Sat by Pulse 97 99 98 Oximetry 06/25/20 06/25/20 06/25/20 07:15 07:30 07:45 Temperature Pulse Rate 60 62 55 L Pulse Rate [ Left Dorsalis Pedis] Pulse Rate [ Left Radial] Pulse Rate [ Right Dorsalis Pedis] Pulse Rate [ Right Radial] Respiratory 20 20 18 Rate Blood Pressure 134/101 134/100 138/98 O2 Sat by Pulse 97 99 99 Oximetry 06/25/20 06/25/20 06/25/20 08:00 08:15 08:31 Temperature Pulse Rate 59 L 59 L 58 L Pulse Rate [ Left Dorsalis Pedis] Pulse Rate [ Left Radial] Pulse Rate [ Right Dorsalis Pedis] Pulse Rate [ Right Radial] Respiratory 22 20 23 Rate Blood Pressure 132/89 126/99 133/97 O2 Sat by Pulse 97 97 98 Oximetry 06/25/20 06/25/2006/25/21 08:45 09:00 09:15 Temperature Pulse Rate 57 L 57 L 61 Pulse Rate [ Left Dorsalis Pedis] Pulse Rate [ Left Radial] Pulse Rate [ Right Dorsalis Pedis] Pulse Rate [ Right Radial] Respiratory 22 17 21 Rate Blood Pressure 145/98 144/105 135/97 O2 Sat by Pulse 99 99 98 Oximetry 06/25/20 06/25/20 06/25/20 09:30 09:39 09:45 Temperature Pulse Rate 68 61 Pulse Rate [ Left Dorsalis Pedis] Pulse Rate [ Left Radial] Pulse Rate [ Right Dorsalis Pedis] Pulse Rate [ Right Radial] Respiratory 18 21 26 H Rate Blood Pressure 138/95 140/106 O2 Sat by Pulse 99 98 Oximetry 06/25/20 06/25/20 06/25/20 10:00 10:15 10:30 Temperature 98.2 F Pulse Rate 59 L 76 61 Pulse Rate [ 60 Left Dorsalis Pedis] Pulse Rate [ 60 Left Radial] Pulse Rate [ 60 Right Dorsalis Pedis] Pulse Rate [ 60 Right Radial] Respiratory 16 20 12 Rate Blood Pressure 147/105 146/100 140/97 O2 Sat by Pulse 99 99 Oximetry 06/25/20 06/25/20 06/25/20 10:45 11:00 11:15 Temperature 98.2 F Pulse Rate 60 67 68 Pulse Rate [ Left Dorsalis Pedis] Pulse Rate [ Left Radial] Pulse Rate [ Right Dorsalis Pedis] Pulse Rate [ Right Radial] Respiratory 16 14 12 Rate Blood Pressure 143/98 139/94 137/93 O2 Sat by Pulse 99 100 100 Oximetry 06/25/20 06/25/20 06/25/20 11:30 11:45 12:00 Temperature 97.5 F L Pulse Rate 58 L 62 64 Pulse Rate [ Left Dorsalis Pedis] Pulse Rate [ Left Radial] Pulse Rate [ Right Dorsalis Pedis] Pulse Rate [ Right Radial] Respiratory 11 L 11 L 21 Rate Blood Pressure 130/94 137/94 115/89 O2 Sat by Pulse 98 100 99 Oximetry 06/25/20 12:01 Temperature Pulse Rate 64 Pulse Rate [ Left Dorsalis Pedis] Pulse Rate [ Left Radial] Pulse Rate [ Right Dorsalis Pedis] Pulse Rate [ Right Radial] Respiratory 21 Rate Blood Pressure 115/89 O2 Sat by Pulse 99 Oximetry Constitutional: no acute distress Eyes: non-icteric ENT: oropharynx moist Neck: supple, no lymphadenopathy, no JVD Effort: normal Ascultation: Bilateral: clear Percussion: Bilateral: not dull Cardiovascular: regular rate and rhythm, other (augmented) Gastrointestinal: normoactive bowel sounds, soft, non-tender, non-distended Integumentary: normal Extremities: no cyanosis, no edema, pulses normal, no ischemia or petechiae Neurologic: normal mental status, non-focal exam, pupils equal and round, CN II- XII normal, motor strength normal and Psychiatric: mood appropriate, affect normal CBC and BMP: 06/26/20 04:09 06/26/20 04:09 ABG, PT/INR, D-dimer: PT/INR, D-dimer PT 13.6 Sec. (12.2-14.9) 06/24/20 13:22 INR 1.05 (0.87-1.13) 06/24/20 13:22 Abnormal lab findings: Abnormal Labs 06/24/20 06/24/20 06/24/20 05:24 05:24 07:57 Hgb MCH 33 H MCHC 35 H RDW 13.1 L Lymph % (Auto) 49.5 H [place] % (Auto) 9.0 H [place] # (Auto) Seg Neutrophils % 39.1 L APTT Sodium Potassium 3.5 L Carbon Dioxide 21 L BUN 8 L Glucose 137 H POC Glucose Calcium AST ALT Troponin T 0.129 H* D Triglycerides 185 H 06/24/20 06/24/20 06/24/20 13:22 13:22 13:22 Hgb 15.3 H MCH MCHC RDW Lymph % (Auto) [place] % (Auto) [place] # (Auto) Seg Neutrophils % APTT 96.5 H* Sodium Potassium Carbon Dioxide BUN Glucose POC Glucose Calcium AST ALT Troponin T 16.700 H* D Triglycerides 06/24/20 06/24/20 06/24/20 17:56 18:50 18:50 Hgb MCH MCHC 35 H RDW Lymph % (Auto) [place] % (Auto) 8.7 H [place] # (Auto) 0.9 H Seg Neutrophils % APTT Sodium 133 L Potassium Carbon Dioxide BUN Glucose 144 H POC Glucose 133 H Calcium AST 368 H ALT 67 H Troponin T Triglycerides 06/24/20 06/25/20 06/25/20 22:00 01:39 04:42 Hgb MCH MCHC RDW Lymph % (Auto) [place] % (Auto) 11.1 H [place] # (Auto) 1.1 H Seg Neutrophils % APTT Sodium Potassium Carbon Dioxide BUN Glucose POC Glucose 137 H 142 H Calcium AST ALT Troponin T Triglycerides 06/25/20 06/25/20 04:42 05:06 Hgb MCH MCHC RDW Lymph % (Auto) [place] % (Auto) [place] # (Auto) Seg Neutrophils % APTT Sodium 135 L Potassium 3.4 L Carbon Dioxide BUN 8 L Glucose 121 H POC Glucose 117 H Calcium 8.3 L AST ALT Troponin T 5.040 H* D Triglycerides Allied health notes reviewed: nursing
[2020-06-25 13:56] LABS: Amphetamine Screen,Urine PRESUMPTIVE NEGATIVE; Benzodiazepines Screen,Urine PRESUMPTIVE NEGATIVE; Cannabinoid Screen,Urine PRESUMPTIVE POSITIVE; Cocaine Screen,Urine PRESUMPTIVE NEGATIVE; Methadone Screen,Urine PRESUMPTIVE NEGATIVE; Opiate Screen,Urine PRESUMPTIVE NEGATIVE
--- NOTE | 2020-06-25 14:37 | Electrocardiograph Report ---
[facility] Test Date: 2020-06-24 Test Time: 04:45:54 Pat Name: CHARLEY VIERA Department: Room: A253 Gender: M Waist Pleater: JESSICA : 1990 Requested By: JUSTIN GUEVARA Order Number: [id number] Reading MD: Rex Springer Measurements Intervals [place] Rate: 63 P: -14 [place]: 139 QRS: -63 QRSD: 102 T: 66 QT: 404 QTc: 404 Interpretive Statements Sinus rhythm Atrial premature complex ANTEROLATERAL INFARCT, ACUTE No previous ECG available for comparison Electronically Signed On 06-25-2020 14:36:50 EDT by Rex Springer
--- NOTE | 2020-06-25 14:38 | Electrocardiograph Report ---
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
--- NOTE | 2020-06-25 14:42 | Electrocardiograph Report ---
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 : 1990 Requested By: DANYELL BALL Order Number: [id number] Reading MD: Rex Springer Measurements Intervals [place] Rate: 67 P: -17 [place]: 131 QRS: 266 QRSD: 99 T: 74 QT: 402 QTc: 424 Interpretive Statements Sinus rhythm Multiform ventricular premature complexes Right ventricular hypertrophy consider acute lateral infarct Inferior infarct, acute Probable anterolateral infarct, recent Compared to ECG 06/24/2020 07:50:25 Ventricular premature complex(es) now present Right ventricular hypertrophy now present T-wave abnormality no longer present Myocardial infarct finding still present Electronically Signed On 06-25-2020 14:41:59 EDT by Rex Springer
--- NOTE | 2020-06-25 14:42 | Progress Note ---
Assessment and Plan Assessment and plan: -Cardiology and CCM consulted, appreciate recommendations -06/24 echocardiogram read pending -Replete potassium and trend BMP -Amiodarone drip discontinued this a.m. for SB per cardiology -Per cardiology: initiate beta-miguel angel if blood pressure and heart rate remains stable after discontinuation of her aortic balloon pump -Aspirin, Plavix, Lipitor -UDS pending -As needed nitroglycerin DVT/GI prophylaxis: SCDs to bilateral lower extremities while in bed, PPI, lovenox subq if okay with cardiology Dispo: ICU, transfer to floor on 06/26 per cardiology History Interval history: This is a 30-year-old male who is a former smoker and occasional marijuana smoker who presented to the emergency department on 06/24 with complaints of midsternal left-sided chest pain which started at 0300 described as sharp in nature rated 10/10 without radiation but with mild shortness of breath and nausea and vomiting x1. Patient received aspirin on route with EMS and he was also hypotensive. On presentation to the emergency department patient was hypertensive at 183/136. Work-up in the emergency department revealed slight hypokalemia and metabolic acidosis. In the emergency department patient had witnessed V. fib arrest s/p defibrillation x1 with immediate ROSC. Code STEMI was initiated and the patient was started on IV heparin and amiodarone drip. Patient was admitted to the hospitalist service with consult to cardiology and CCM. STEMI s/p intra-aortic balloon pump V. fib arrest with ROSC Hypokalemia HTN Marijuana use Hospitalist Physical - Constitutional Vitals: Temp Pulse Resp BP Pulse Ox 97.5 F L 72 20 126/87 99 06/25/20 12:00 06/25/20 14:00 06/25/20 14:00 06/25/20 14:06/25/20 14:00 General appearance: Present: no acute distress, well-nourished - EENT Eyes: Present: PERRL, EOM intact ENT: hearing intact, clear oral mucosa, dentition normal - Neck Neck: Present: supple - Respiratory Respiratory effort: normal Respiratory: bilateral: CTA - Cardiovascular Rhythm: regular Heart Sounds: Present: S1 & S2. Absent: systolic murmur, diastolic murmur - Extremities Extremities: no ischemia, pulses intact, pulses symmetrical, No edema, normal temperature, normal color Peripheral Pulses: within normal limits - Abdominal General gastrointestinal: soft, non-tender, non-distended, normal bowel sounds - Integumentary Integumentary: Present: warm - Psychiatric Psychiatric: cooperative - Neurologic Neurologic: CNII-XII intact, no focal deficits, moves all extremities - Allied Health Allied health notes reviewed: nursing HEART Score - HEART Score EKG: Non-specific Age: < 45 Risk factors: 1-2 risk factors Troponin: Troponin T 5.040 ng/mL (0.00-0.029) H* D 06/25/20 04:42 Troponin: 1-3x normal limit - Critical Actions Critical Actions: 4-6 pts:12-16.6% risk of adverse cardiac event. Should be admitted Results - Labs CBC & Chem 7: 06/25/20 04:42 06/25/20 04:42 Labs: Laboratory Last Values WBC 9.5 K/mm3 (4.5-11.0) 06/25/20 04:42 RBC 4.50 M/mm3 (3.65-5.03) 06/25/20 04:42 Hgb 14.1 gm/dl (11.8-15.2) 06/25/20 04:42 Hct 41.6 % (35.5-45.6) 06/25/20 04:42 MCV 93 fl (84-94) 06/25/20 04:42 MCH 31 pg (28-32) 06/25/20 04:42 MCHC 34 % (32-34) 06/25/20 04:42 RDW 13.6 % (13.2-15.2) 06/25/20 04:42 Plt Count 306 K/mm3 (140-440) 06/25/20 04:42 Lymph % (Auto) 31.7 % (13.4-35.0) 06/25/20 04:42 [place] % (Auto) 11.1 % (0.0-7.3) H 06/25/20 04:42 Eos % (Auto) 0.4 % (0.0-4.3) 06/25/20 04:42 Baso % (Auto) 0.6 % (0.0-1.8) 06/25/20 04:42 Lymph # (Auto) 3.0 K/mm3 (1.2-5.4) 06/25/20 04:42 [place] # (Auto) 1.1 K/mm3 (0.0-0.8) H 06/25/20 04:42 Eos # (Auto) 0.0 K/mm3 (0.0-0.4) 06/25/20 04:42 Baso # (Auto) 0.1 K/mm3 (0.0-0.1) 06/25/20 04:42 Seg Neutrophils % 56.2 % (40.0-70.0) 06/25/20 04:42 Seg Neutrophils # 5.4 K/mm3 (1.8-7.7) 06/25/20 04:42 PT 13.6 Sec. (12.2-14.9) 06/24/20 13:22 INR 1.05 (0.87-1.13) 06/24/20 13:22 APTT 96.5 Sec. (24.2-36.6) H* 06/24/20 13:22 Heparin Anti-Xa Level 0.66 U.I./ml (0.3-0.7) 06/24/20 18:50 Sodium 135 mmol/L (137-145) L 06/25/20 04:42 Potassium 3.4 mmol/L (3.6-5.0) L 06/25/20 04:42 Chloride 98.9 mmol/L (98-107) 06/25/20 04:42 Carbon Dioxide 26 mmol/L (22-30) 06/25/20 04:42 Anion Gap 14 mmol/L 06/25/20 04:42 BUN 8 mg/dL (9-20) L 06/25/20 04:42 Creatinine 0.9 mg/dL (0.8-1.3) 06/25/20 04:42 Estimated GFR > 60 ml/min 06/25/20 04:42 BUN/Creatinine Ratio 9 % 06/25/20 04:42 Glucose 121 mg/dL (75-100) H 06/25/20 04:42 POC Glucose 117 mg/dL (70-105) H 06/25/20 05:06 Calcium 8.3 mg/dL (8.4-10.2) L 06/25/20 04:42 Total Bilirubin 0.80 mg/dL (0.1-1.2) 06/24/20 18:50 AST 368 units/L (5-40) H 06/24/20 18:50 ALT 67 units/L (7-56) H 06/24/20 18:50 Alkaline Phosphatase 67 units/L (35-129) 06/24/20 18:50 Troponin T 5.040 ng/mL (0.00-0.029) H* D 06/25/20 04:42 Total Protein 7.4 g/dL (6.3-8.2) 06/24/20 18:50 Albumin 4.1 g/dL (3.9-5) 06/24/20 18:50 Albumin/Globulin Ratio 1.2 % 06/24/20 18:50 Triglycerides 185 mg/dL (2-149) H 06/24/20 07:57 Cholesterol 173 mg/dL (50-199) 06/24/20 07:57 LDL Cholesterol Direct 108 mg/dL (50-130) 06/24/20 07:57 HDL Cholesterol 48 mg/dL (40-59) 06/24/20 07:57 Cholesterol/HDL Ratio 3.60 % 06/24/20 07:57 Urine Opiates Screen Presumptive negative 06/25/20 13:22 Urine Methadone Screen Presumptive negative 06/25/20 13:22 Ur Barbiturates Screen Presumptive negative 06/25/20 13:22 Ur Phencyclidine Scrn Presumptive negative 06/25/20 13:22 Ur Amphetamines Screen Presumptive negative 06/25/20 13:22 U Benzodiazepines Scrn Presumptive negative 06/25/20 13:22 Urine Cocaine Screen Presumptive negative 06/25/20 13:22 U Marijuana (THC) Screen Presumptive positive 06/25/20 13:22 Bhatia/IV: Voiding Method Indwelling Catheter Active Medications - Current Medications Current Medications: Generic Name Dose Route Start Last Admin Trade Name Freq PRN Reason Stop Dose Admin Hydrocodone Bitart/Acetaminophen 1 each 06/24/20 10:47 06/25/20 09:39 Hydrocodone/Acetaminophen 5-325 Mg Tab PO 1 each Q6H PRN Administration Pain, Moderate (4-6) Aspirin 325 mg 06/25/20 10:00 06/25/20 10:03 Aspirin Ec 325 Mg Tab PO 325 mg QDAY EBONY Administration Atorvastatin Calcium 80 mg 06/24/20 22:00 06/24/20 21:54 Atorvastatin 40 Mg Tab PO 80 mg QHS EBONY Administration Clopidogrel Bisulfate 75 mg 06/25/20 10:00 06/25/20 10:03 Clopidogrel 75 Mg Tab PO 75 mg QDAY EBONY Administration Famotidine 20 mg 06/24/20 22:00 06/24/20 21:54 Famotidine 20 Mg Tab PO 20 mg QHS EBONY Administration Sodium Chloride 10 ml 06/24/20 10:00 06/25/20 08:59 Sodium Chloride 0.9% 10 Ml Flush Syringe IV 10 ml BID EBONY Administration Sodium Chloride 10 ml 06/24/20 09:00 Sodium Chloride 0.9% 10 Ml Flush Syringe IV PRN PRN LINE FLUSH
--- NOTE | 2020-06-25 14:48 | Electrocardiograph Report ---
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
--- NOTE | 2020-06-25 14:51 | Electrocardiograph Report ---
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
[2020-06-25] MEDS: FAMOTIDINE 20 MG TAB PO SCH (22:40)
[2020-06-25] MEDS: ENOXAPARIN 40 MG/0.4 ML INJ SUB-Q SCH (22:40)
[2020-06-26 05:13] LABS: Hematocrit 40.2 % (35.5-45.6); Hemoglobin 13.8 gm/dl (11.8-15.2)
[2020-06-26 05:28] LABS: BUN/Creatinine Ratio 9; Blood Urea Nitrogen 9 mg/dL (9-20); Calcium 8.5 mg/dL (8.4-10.2); Hemolysis Index 4
[2020-06-26] MEDS: ASPIRIN EC 325 MG TAB PO SCH (09:16)
[2020-06-26] MEDS: CLOPIDOGREL 75 MG TAB PO SCH (09:16)
--- NOTE | 2020-06-26 11:00 | Progress Note ---
Assessment and Plan Assessment and plan: This is a 30-year-old male who is a former smoker and occasional marijuana smoker who presented to the emergency department on 06/24 with complaints of midsternal left-sided chest pain which started at 0300 described as sharp in nature rated 10/10 without radiation but with mild shortness of breath and na usea and vomiting x1. Patient received aspirin on route with EMS and he was also hypotensive. On presentation to the emergency department patient was hypertensive at 183/136. Work-up in the emergency department revealed slight hypokalemia and metabolic acidosis. In the emergency department patient had witnessed V. fib arrest s/p defibrillation x1 with immediate ROSC. Code STEMI was initiated and the patient was started on IV heparin and amiodarone drip. Patient was admitted to the hospitalist service with consult to cardiology and [facility]. STEMI s/p intra-aortic balloon pump V. fib arrest with ROSC Hypokalemia HTN Marijuana use 06/26/2020. Patient is STEMI from acute atherothrombotic occlusion of the proximal LAD complicated by V. fib cardiac arrest. Patient had successful primary PCI with placement of drug-eluting stent and left ventriculography revealed anterior hypokinesis with EF of 40 to 45% and LVEDP of 41 mmHg. Patient had placement of intra-aortic balloon pump which was discontinued yesterday. Echocardiogram revealed EF mild to moderately decreased with EF 40 to 45%. Continue aspirin, Plavix, Lipitor and beta-miguel angel. Patient will be transferred to telemetry floor. History Interval history: No new issues overnight. Hospitalist Physical - Constitutional Vitals: Temp Pulse Resp BP Pulse Ox 98.1 F 57 L 10 L 124/84 100 06/26/20 08:00 06/26/20 10:00 06/26/20 10:00 06/26/20 10:06/26/20 10:00 General appearance: Present: no acute distress, well-nourished - EENT Eyes: Present: PERRL, EOM intact ENT: hearing intact, clear oral mucosa, dentition normal - Neck Neck: Present: supple, normal ROM - Respiratory Respiratory effort: normal Respiratory: bilateral: CTA - Cardiovascular Rhythm: regular Heart Sounds: Present: S1 & S2. Absent: gallop, rub - Extremities Extremities: no ischemia, No edema, Full ROM - Abdominal General gastrointestinal: soft, non-tender, non-distended, normal bowel sounds - Integumentary Integumentary: Present: clear, warm, dry - Neurologic Neurologic: CNII-XII intact, moves all extremities HEART Score - HEART Score EKG: Non-specific Age: < 45 Risk factors: 1-2 risk factors Troponin: Troponin T 5.040 ng/mL (0.00-0.029) H* D 06/25/20 04:42 Troponin: 1-3x normal limit - Critical Actions Critical Actions: 4-6 pts:12-16.6% risk of adverse cardiac event. Should be admitted Results - Labs CBC & Chem 7: 06/26/20 04:09 06/26/20 04:09 Labs: Laboratory Last Values WBC 9.5 K/mm3 (4.5-11.0) 06/25/20 04:42 RBC 4.50 M/mm3 (3.65-5.03) 06/25/20 04:42 Hgb 13.8 gm/dl (11.8-15.2) 06/26/20 04:09 Hct 40.2 % (35.5-45.6) 06/26/20 04:09 MCV 93 fl (84-94) 06/25/20 04:42 MCH 31 pg (28-32) 06/25/20 04:42 MCHC 34 % (32-34) 06/25/20 04:42 RDW 13.6 % (13.2-15.2) 06/25/20 04:42 Plt Count 256 K/mm3 (140-440) 06/26/20 04:09 Lymph % (Auto) 31.7 % (13.4-35.0) 06/25/20 04:42 [place] % (Auto) 11.1 % (0.0-7.3) H 06/25/20 04:42 Eos % (Auto) 0.4 % (0.0-4.3) 06/25/20 04:42 Baso % (Auto) 0.6 % (0.0-1.8) 06/25/20 04:42 Lymph # (Auto) 3.0 K/mm3 (1.2-5.4) 06/25/20 04:42 [place] # (Auto) 1.1 K/mm3 (0.0-0.8) H 06/25/20 04:42 Eos # (Auto) 0.0 K/mm3 (0.0-0.4) 06/25/20 04:42 Baso # (Auto) 0.1 K/mm3 (0.0-0.1) 06/25/20 04:42 Seg Neutrophils % 56.2 % (40.0-70.0) 06/25/20 04:42 Seg Neutrophils # 5.4 K/mm3 (1.8-7.7) 06/25/20 04:42 PT 13.6 Sec. (12.2-14.9) 06/24/20 13:22 INR 1.05 (0.87-1.13) 06/24/20 13:22 APTT 96.5 Sec. (24.2-36.6) H* 06/24/20 13:22 Heparin Anti-Xa Level 0.66 U.I./ml (0.3-0.7) 06/24/20 18:50 Sodium 135 mmol/L (137-145) L 06/26/20 04:09 Potassium 3.8 mmol/L (3.6-5.0) 06/26/20 04:09 Chloride 100.0 mmol/L (98-107) 06/26/20 04:09 Carbon Dioxide 28 mmol/L (22-30) 06/26/20 04:09 Anion Gap 11 mmol/L 06/26/20 04:09 BUN 9 mg/dL (9-20) 06/26/20 04:09 Creatinine 1.0 mg/dL (0.8-1.3) 06/26/20 04:09 Estimated GFR > 60 ml/min 06/26/20 04:09 BUN/Creatinine Ratio 9 % 06/26/20 04:09 Glucose 105 mg/dL (75-100) H 06/26/20 04:09 POC Glucose 117 mg/dL (70-105) H 06/25/20 05:06 Calcium 8.5 mg/dL (8.4-10.2) 06/26/20 04:09 Total Bilirubin 0.80 mg/dL (0.1-1.2) 06/24/20 18:50 AST 368 units/L (5-40) H 06/24/20 18:50 ALT 67 units/L (7-56) H 06/24/20 18:50 Alkaline Phosphatase 67 units/L (35-129) 06/24/20 18:50 Troponin T 5.040 ng/mL (0.00-0.029) H* D 06/25/20 04:42 Total Protein 7.4 g/dL (6.3-8.2) 06/24/20 18:50 Albumin 4.1 g/dL (3.9-5) 06/24/20 18:50 Albumin/Globulin Ratio 1.2 % 06/24/20 18:50 Triglycerides 185 mg/dL (2-149) H 06/24/20 07:57 Cholesterol 173 mg/dL (50-199) 06/24/20 07:57 LDL Cholesterol Direct 108 mg/dL (50-130) 06/24/20 07:57 HDL Cholesterol 48 mg/dL (40-59) 06/24/20 07:57 Cholesterol/HDL Ratio 3.60 % 06/24/20 07:57 Urine Opiates Screen Presumptive negative 06/25/20 13:22 Urine Methadone Screen Presumptive negative 06/25/20 13:22 Ur Barbiturates Screen Presumptive negative 06/25/20 13:22 Ur Phencyclidine Scrn Presumptive negative 06/25/20 13:22 Ur Amphetamines Screen Presumptive negative 06/25/20 13:22 U Benzodiazepines Scrn Presumptive negative 06/25/20 13:22 Urine Cocaine Screen Presumptive negative 06/25/20 13:22 U Marijuana (THC) Screen Presumptive positive 06/25/20 13:22 Drugs of Abuse Note Disclamer 06/25/20 13:22 Coronavirus (PCR) Negative (Negative) 06/25/20 Unknown Bhatia/IV: Voiding Method Indwelling Catheter Active Medications - Current Medications Current Medications: Generic Name Dose Route Start Last Admin Trade Name Freq PRN Reason Stop Dose Admin Hydrocodone Bitart/Acetaminophen 1 each 06/24/20 10:47 06/25/20 21:26 Hydrocodone/Acetaminophen 5-325 Mg Tab PO 1 each Q6H PRN Administration Pain, Moderate (4-6) Aspirin 325 mg 06/25/20 10:00 06/26/20 09:16 Aspirin Ec 325 Mg Tab PO 325 mg QDAY EBONY Administration Atorvastatin Calcium 80 mg 06/24/20 22:00 06/25/20 22:41 Atorvastatin 40 Mg Tab PO 80 mg QHS EBONY Administration Clopidogrel Bisulfate 75 mg 06/25/20 10:00 06/26/20 09:16 Clopidogrel 75 Mg Tab PO 75 mg QDAY EBONY Administration Enoxaparin Sodium 40 mg 06/25/20 22:00 06/25/20 22:40 Enoxaparin 40 Mg/0.4 Ml Inj SUB-Q 40 mg QDAY@2200 EBONY Administration Protocol Famotidine 20 mg 06/24/20 22:00 06/25/20 22:40 Famotidine 20 Mg Tab PO 20 mg QHS EBONY Administration Sodium Chloride 10 ml 06/24/20 10:00 06/26/20 09:16 Sodium Chloride 0.9% 10 Ml Flush Syringe IV 10 ml BID EBONY Administration Sodium Chloride 10 ml 06/24/20 09:00 Sodium Chloride 0.9% 10 Ml Flush Syringe IV PRN PRN LINE FLUSH
--- NOTE | 2020-06-26 15:05 | Progress Note ---
Assessment and Plan STEMI Cardiac arrest with return of spontaneous circulation. Ventricular fibrillation arrest. Hypertension, uncontrolled. Obesity. Tobacco use disorder. Mild hypokalemia at presentation - to transfer to regular floor - continue care as below otherwise; - accuchecks with glycemic control per SSI for target blood glucose of < 180 mg/dL; avoid hypoglycemia - prn supplemental oxygen for target O2 sat's > 90% acutely - prn bronchodilators with pulmonary hygiene per RT - avoid nephrotoxins, renally dose all medications - continue anti-platelet therapy - secondary prevention per attending / cardiology teams - tobacco abstinence counseled - prn analgesia per pain score - Maintenance of sleep-wake cycle, avoid delirium - continue enteral nutritional support at goal rate as tolerated - G.I. & VTE prophylaxis - PT/OT/ROM exercises - continue mobility protocols for pressure ulcer prophylaxis - Monitor hemodynamics closely - continue other care per attending / other consultants - discharge planning ongoing concurrently .... Re-evaluate in am & prn Subjective Date of service: 06/26/20 Principal diagnosis: STEMI; ACS; Cardiac arrest; V-fib; arrest; HTN; Obesity; Tobacco Abuse Interval history: Patient is seen today for: STEMI; Cardiac arrest with ROSC; Ventricular fibrillation arrest; HTN; Obesity; Tobacco use disorder; Mild hypokalemia Seen and examined at bedside; 24hour events reviewed; nursing and respiratory care staff consulted; no adverse overnight events reported to me; resting peacefully in bed; improved and to transfer to floor; no N/V/F/C Objective Vital Signs - 12hr 06/26/20 06/26/20 06/26/20 03:40 04:00 05:01 Temperature 98.7 F Pulse Rate 62 69 Respiratory 17 Rate Blood Pressure 127/90 127/90 O2 Sat by Pulse 98 99 Oximetry 06/26/20 06/26/20 06/26/20 06:00 07:01 08:00 Temperature 98.1 F Pulse Rate 60 65 65 Respiratory 14 15 21 Rate Blood Pressure 139/97 139/97 138/99 O2 Sat by Pulse 98 98 100 Oximetry 06/26/20 06/26/20 06/26/20 09:01 10:00 11:01 Temperature Pulse Rate 74 57 L 68 Respiratory 14 10 L 18 Rate Blood Pressure 138/99 124/84 124/84 O2 Sat by Pulse 100 100 100 Oximetry 06/26/20 06/26/20 06/26/20 11:59 12:00 13:35 Temperature 98 F Pulse Rate 54 L 80 Respiratory 18 18 Rate Blood Pressure 116/77 117/84 O2 Sat by Pulse 100 98 Oximetry Constitutional: no acute distress Eyes: non-icteric ENT: oropharynx moist Neck: supple, no lymphadenopathy, no JVD Effort: normal Ascultation: Bilateral: clear Percussion: Bilateral: not dull Cardiovascular: regular rate and rhythm, other (augmented) Gastrointestinal: normoactive bowel sounds, soft, non-tender, non-distended Integumentary: normal Extremities: no cyanosis, no edema, pulses normal, no ischemia or petechiae Neurologic: normal mental status, non-focal exam, pupils equal and round, CN II- XII normal, motor strength normal and Psychiatric: mood appropriate, affect normal CBC and BMP: 06/26/20 04:09 06/26/20 04:09 ABG, PT/INR, D-dimer: PT/INR, D-dimer PT 13.6 Sec. (12.2-14.9) 06/24/20 13:22 INR 1.05 (0.87-1.13) 06/24/20 13:22 Abnormal lab findings: Abnormal Labs 06/24/20 06/24/20 06/24/20 05:24 05:24 07:57 Hgb MCH 33 H MCHC 35 H RDW 13.1 L Lymph % (Auto) 49.5 H [place] % (Auto) 9.0 H [place] # (Auto) Seg Neutrophils % 39.1 L APTT Sodium Potassium 3.5 L Carbon Dioxide 21 L BUN 8 L Glucose 137 H POC Glucose Calcium AST ALT Troponin T 0.129 H* D Triglycerides 185 H 06/24/20 06/24/20 06/24/20 13:22 13:22 13:22 Hgb 15.3 H MCH MCHC RDW Lymph % (Auto) [place] % (Auto) [place] # (Auto) Seg Neutrophils % APTT 96.5 H* Sodium Potassium Carbon Dioxide BUN Glucose POC Glucose Calcium AST ALT Troponin T 16.700 H* D Triglycerides 06/24/20 06/24/20 06/24/20 17:56 18:50 18:50 Hgb MCH MCHC 35 H RDW Lymph % (Auto) [place] % (Auto) 8.7 H [place] # (Auto) 0.9 H Seg Neutrophils % APTT Sodium 133 L Potassium Carbon Dioxide BUN Glucose 144 H POC Glucose 133 H Calcium AST 368 H ALT 67 H Troponin T Triglycerides 06/24/20 06/25/20 06/25/20 22:00 01:39 04:42 Hgb MCH MCHC RDW Lymph % (Auto) [place] % (Auto) 11.1 H [place] # (Auto) 1.1 H Seg Neutrophils % APTT Sodium Potassium Carbon Dioxide BUN Glucose POC Glucose 137 H 142 H Calcium AST ALT Troponin T Triglycerides 06/25/20 06/25/20 06/26/20 04:42 05:06 04:09 Hgb MCH MCHC RDW Lymph % (Auto) [place] % (Auto) [place] # (Auto) Seg Neutrophils % APTT Sodium 135 L 135 L Potassium 3.4 L Carbon Dioxide BUN 8 L Glucose 121 H 105 H POC Glucose 117 H Calcium 8.3 L AST ALT Troponin T 5.040 H* D Triglycerides Allied health notes reviewed: nursing
--- NOTE | 2020-06-26 18:50 | Progress Note ---
Assessment and Plan Continue ASA, Plavix, and statin. Will consider initiation of BB when BP permits. Anticipate discharge in 1-2 days from a cardiac perspective. Pt seen in conjunction with Dr. Barriga, who agrees with the assessment and plan of care. - Patient Problems (1) Cardiac arrest Current Visit: Yes Status: Resolved (2) VF (ventricular fibrillation) Current Visit: Yes Status: Resolved (3) STEMI (ST elevation myocardial infarction) Current Visit: Yes Status: Acute Plan to address problem: S/p successful emergent PCI of LAD (4) CAD (coronary artery disease) Current Visit: Yes Status: Chronic (5) Stented coronary artery Current Visit: Yes Status: Chronic (6) HTN (hypertension) Current Visit: Yes Status: Chronic Qualifiers: Hypertension type: essential hypertension Qualified Code(s): I10 - Essential (primary) hypertension (7) Tobacco abuse Current Visit: Yes Status: Chronic Subjective Date of service: 06/26/20 Principal diagnosis: STEMI, S/p VF Arrest Interval history: Resting comfortably. Denies chest pain or any additional cardiac complaints. Wants to go home. SR 60-70s on tele. Objective Last Vital Signs Temp 98.1 F 06/26/20 16:07 Pulse 69 06/26/20 16:08 Resp 16 06/26/20 16:07 BP 135/78 06/26/20 16:07 Pulse Ox 98 06/26/20 16:07 - Physical Examination General: No Apparent Distress HEENT: Positive: EOMI, Normocephaly, Mucus Membranes Moist Neck: Positive: neck supple, trachea midline Cardiac: Positive: Reg Rate and Rhythm, S1/S2 Lungs: Positive: clear to auscultation Neuro: Positive: Grossly Intact Abdomen: Positive: Soft. Negative: Tender Skin: Negative: Rash Incision: Cardiac Cath Site Musculoskeletal: No Pain Extremities: Present: upper extr. pulses, lower extr. pulses. Absent: edema - Labs and Meds CBC 06/26/20 Range/Units 04:09 Hgb 13.8 (11.8-15.2) gm/dl Hct 40.2 (35.5-45.6) % Plt Count 256 (140-440) K/mm3 Comprehensive Metabolic Panel 06/26/20 Range/Units 04:09 Sodium 135 L (137-145) mmol/L Potassium 3.8 (3.6-5.0) mmol/L Chloride 100.0 (98-107) mmol/L Carbon Dioxide 28 (22-30) mmol/L BUN 9 (9-20) mg/dL Creatinine 1.0 (0.8-1.3) mg/dL Glucose 105 H (75-100) mg/dL Calcium 8.5 (8.4-10.2) mg/dL - Imaging and Cardiology EKG: report reviewed, image reviewed Echo: report reviewed (06/24/2020: mild-mod concentric LVH, mod anterior & hans- apical hypokinesis, EF 40-45%) Cardiac cath: report reviewed (06/24/2020 - PCI w/ESTUARDO to culprit LAD, other vessels without significant disease) - Telemetry EKG Rhythm: Sinus Rhythm - Allied health notes Allied health notes reviewed: nursing
[2020-06-26] MEDS: HYDROcodone/ACETAMINOPHEN 5-325 MG TAB PO PRN (22:29)
[2020-06-26] MEDS: FAMOTIDINE 20 MG TAB PO SCH (22:29)
[2020-06-26] MEDS: ENOXAPARIN 40 MG/0.4 ML INJ SUB-Q SCH (22:29)
[2020-06-27] MEDS: HYDROcodone/ACETAMINOPHEN 5-325 MG TAB PO PRN (09:20)
[2020-06-27] MEDS: CLOPIDOGREL 75 MG TAB PO SCH (09:20)
[2020-06-27] MEDS: ASPIRIN EC 325 MG TAB PO SCH (09:20)
[2020-06-27 09:29] VITALS: BP 126/84
--- NOTE | 2020-06-27 09:31 | Discharge Summary ---
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 06/24/20 10:44 Consult to Physician [CONS] Routine Comment: noted/ disha Consulting Provider: FRANCISCA MILLER Physician Instructions: Reason For Exam: Post Arrest, Post LHC on Balloon pump Primary care physician: DIRECTOR OF MANUFACTURING Hospitalization Reason for admission: STEMI Condition: Serious Hospital course: This is a 30-year-old male who is a former smoker and occasional marijuana smoker who presented to the emergency department on 06/24 with complaints of midsternal left-sided chest pain which started at 0300 described as sharp in nature rated 10/10 without radiation but with mild shortness of breath and nausea and vomiting x1. Patient received aspirin on route with EMS and he was also hypotensive. On presentation to the emergency department patient was hypertensive at 183/136. Work-up in the emergency department revealed slight hypokalemia and metabolic acidosis. In the emergency department patient had witnessed V. fib arrest s/p defibrillation x1 with immediate ROSC. Code STEMI was initiated and the patient was started on IV heparin and amiodarone drip. Patient was admitted to the hospitalist service with consult to cardiology and [facility]. Admission diagnosis: STEMI s/p intra-aortic balloon pump,V. fib arrest with ROSC, Hypokalemia, HTN, Marijuana use. Patient dx with STEMI from acute atherothrombotic occlusion of the proximal LAD complicated by V. fib cardiac arrest. Patient had successful primary PCI with placement of drug-eluting stent and left ventriculography revealed anterior hypokinesis with EF of 40 to 45% and LVEDP of 41 mmHg. Patient had placement of intra-aortic balloon pump which was discontinued yesterday. Echocardiogram revealed EF mild to moderately decreased with EF 40 to 45%. Continue aspirin, Plavix, Lipitor and beta- miguel angel. The balloon pump was later discontinued and the patient was transferred to telemetry floor. Patient remained stable on telemetry floor and was continued on aspirin, Plavix and statin. Beta-miguel angel was initially held due to hypotension. Patient has otherwise felt to have met maximal hospital benefit and thus will be discharged home. Dedicated discharge time 35 minutes. Patient is to follow-up with cardiology as an outpatient Disposition: DC-01 TO HOME OR SELFCARE Final Discharge Diagnosis (Prints w/discharge instructions): STEMI s/p intra- aortic balloon pump,V. fib arrest with ROSC, Hypokalemia, HTN, Marijuana use, acute systolic heart failure, stunned myocardium Time spent for discharge: 35 Core Measure Documentation - Palliative Care Palliative Care/ Comfort Measures: Not Applicable - Core Measures Any of the following diagnoses?: none Exam - Constitutional Vitals: Temp Pulse Resp BP Pulse Ox 97.7 F 62 18 126/69 97 06/27/20 04:20 06/27/20 04:20 06/27/20 04:20 06/27/20 04:20 06/27/20 04:20 General appearance: Present: no acute distress, well-nourished - EENT Eyes: Present: PERRL ENT: hearing intact, clear oral mucosa - Neck Neck: Present: supple, normal ROM - Respiratory Respiratory effort: normal Respiratory: bilateral: CTA - Cardiovascular Heart Sounds: Present: S1 & S2. Absent: rub, click - Extremities Extremities: pulses symmetrical, No edema Peripheral Pulses: within normal limits - Abdominal General gastrointestinal: Present: soft, non-tender, non-distended, normal bowel sounds Male genitourinary: Present: normal - Integumentary Integumentary: Present: clear, warm, dry - Musculoskeletal Musculoskeletal: gait normal, strength equal bilaterally - Psychiatric Psychiatric: appropriate mood/affect, intact judgment & insight - Neurologic Neurologic: CNII-XII intact, moves all extremities Plan Activity: advance as tolerated Weight Bearing Status: Weight Bear as Tolerated Diet: low fat, low cholesterol, low salt Follow up with: KALYN NAVARRETE MD [Primary Care Provider] - 7 Days JACKELYN TREVINO MD [Staff Physician] - 7 Days Prescriptions: Aspirin EC [Ecotrin] 325 mg PO QDAY #30 tablet AtorvaSTATin [Lipitor] 80 mg PO QHS #30 tablet Clopidogrel [Plavix] 75 mg PO QDAY #30 tablet
--- NOTE | 2020-06-27 10:36 | Progress Note ---
Assessment and Plan Continue ASA, Plavix, statin, and BB. Lifestyle modifications, including low-salt diet and EtOH/smoking cessation, d/w pt at bedside. Pt verbalized understanding. May return to work after 2 weeks. Otherwise stable cardiac status. Pt may be discharged from a Cardiology perspective. Recommend follow-up with Dr. Clifton Peters in 1-2 weeks ([phone]). Pt seen in conjunction with Dr. Barriga, who agrees with the assessment and plan of care. - Patient Problems (1) Cardiac arrest Current Visit: Yes Status: Resolved (2) VF (ventricular fibrillation) Current Visit: Yes Status: Resolved (3) STEMI (ST elevation myocardial infarction) Current Visit: Yes Status: Acute Plan to address problem: S/p successful emergent PCI of LAD (4) CAD (coronary artery disease) Current Visit: Yes Status: Chronic Qualifiers: Coronary Disease-Associated Artery/Lesion type: [place] artery [place] vs. transplanted heart: [place] heart (5) Stented coronary artery Current Visit: Yes Status: Chronic (6) HTN (hypertension) Current Visit: Yes Status: Chronic Qualifiers: Hypertension type: essential hypertension Qualified Code(s): I10 - Essential (primary) hypertension (7) Tobacco abuse Current Visit: Yes Status: Chronic (8) ETOH abuse Current Visit: Yes Status: Chronic Subjective Date of service: 06/27/20 Principal diagnosis: STEMI, S/p VF Arrest Interval history: Resting comfortably in bed. Reports a brief episode of palpitations overnight, approx 1-2 sec in duration. Denies chest pain or any additional cardiac complaints. Tele reviewed - SR 70s, no events overnight. Objective Last Vital Signs Temp 97.4 F L 06/27/20 07:08 Pulse 58 L 06/27/20 07:08 Resp 18 06/27/20 07:08 BP 126/84 06/27/20 07:08 Pulse Ox 99 06/27/20 07:08 - Physical Examination General: No Apparent Distress HEENT: Positive: EOMI, Normocephaly, Mucus Membranes Moist Neck: Positive: neck supple, trachea midline Cardiac: Positive: Reg Rate and Rhythm, S1/S2 Lungs: Positive: clear to auscultation Neuro: Positive: Grossly Intact Abdomen: Positive: Soft. Negative: Tender Skin: Negative: Rash Incision: Cardiac Cath Site (R groin site c/d/i - no evidence of bleeding or hematoma) Musculoskeletal: No Pain Extremities: Present: upper extr. pulses, lower extr. pulses. Absent: edema - Imaging and Cardiology EKG: report reviewed, image reviewed Echo: report reviewed (06/24/2020: mild-mod concentric LVH, mod anterior & hans- apical hypokinesis, EF 40-45%) Cardiac cath: report reviewed (06/24/2020 - PCI w/ESTUARDO to culprit LAD, other vessels without significant disease) - Telemetry EKG Rhythm: Sinus Rhythm - EKG Sinus rhythms and dysrhythmias: sinus rhythm Myocardial infarction: anterior TX (acute or rec, lateral TX (acute or rece - Allied health notes Allied health notes reviewed: nursing
[2020-06-27] MEDS ORDERED: POLYETHYLENE GLYCOL 3350 17 GM POWDER PO PRN (11:30)
--- NOTE | 2020-06-27 14:40 | Progress Note ---
Assessment and Plan STEMI Cardiac arrest with return of spontaneous circulation. Ventricular fibrillation arrest. Hypertension, uncontrolled. Obesity. Tobacco use disorder. Mild hypokalemia at presentation - to transfer to regular floor - continue care as below otherwise; - accuchecks with glycemic control per SSI for target blood glucose of < 180 mg/dL; avoid hypoglycemia - prn supplemental oxygen for target O2 sat's > 90% acutely - prn bronchodilators with pulmonary hygiene per RT - avoid nephrotoxins, renally dose all medications - continue anti-platelet therapy - secondary prevention per attending / cardiology teams - tobacco abstinence counseled - prn analgesia per pain score - Maintenance of sleep-wake cycle, avoid delirium - continue enteral nutritional support at goal rate as tolerated - G.I. & VTE prophylaxis - PT/OT/ROM exercises - continue mobility protocols for pressure ulcer prophylaxis - Monitor hemodynamics closely - continue other care per attending / other consultants - discharge planning ongoing concurrently .... Re-evaluate in am & prn Subjective Date of service: 06/27/20 Principal diagnosis: STEMI, S/p VF Arrest Interval history: Patient is seen today for: STEMI; Cardiac arrest with ROSC; Ventricular fibrillation arrest; HTN; Obesity; Tobacco use disorder; Mild hypokalemia Seen and examined at bedside; 24hour events reviewed; nursing and respiratory care staff consulted; no adverse overnight events reported to me; resting peacefully in bed; improved and to transfer to floor; no N/V/F/C Objective Vital Signs - 12hr 06/27/20 06/27/20 06/27/20 04:20 07:08 10:00 Temperature 97.7 F 97.4 F L Pulse Rate 62 58 L 75 Respiratory 18 18 18 Rate Blood Pressure 126/69 126/84 O2 Sat by Pulse 97 99 99 Oximetry Constitutional: no acute distress Eyes: non-icteric ENT: oropharynx moist Neck: supple, no lymphadenopathy, no JVD Effort: normal Ascultation: Bilateral: clear Percussion: Bilateral: not dull Cardiovascular: regular rate and rhythm, other (augmented) Gastrointestinal: normoactive bowel sounds, soft, non-tender, non-distended Integumentary: normal Extremities: no cyanosis, no edema, pulses normal, no ischemia or petechiae Neurologic: normal mental status, non-focal exam, pupils equal and round, CN II- XII normal, motor strength normal and Psychiatric: mood appropriate, affect normal CBC and BMP: 06/26/20 04:09 06/26/20 04:09 ABG, PT/INR, D-dimer: PT/INR, D-dimer PT 13.6 Sec. (12.2-14.9) 06/24/20 13:22 INR 1.05 (0.87-1.13) 06/24/20 13:22 Abnormal lab findings: Abnormal Labs 06/24/20 06/24/20 06/24/20 05:24 05:24 07:57 Hgb MCH 33 H MCHC 35 H RDW 13.1 L Lymph % (Auto) 49.5 H [place] % (Auto) 9.0 H [place] # (Auto) Seg Neutrophils % 39.1 L APTT Sodium Potassium 3.5 L Carbon Dioxide 21 L BUN 8 L Glucose 137 H POC Glucose Calcium AST ALT Troponin T 0.129 H* D Triglycerides 185 H 06/24/20 06/24/20 06/24/20 13:22 13:22 13:22 Hgb 15.3 H MCH MCHC RDW Lymph % (Auto) [place] % (Auto) [place] # (Auto) Seg Neutrophils % APTT 96.5 H* Sodium Potassium Carbon Dioxide BUN Glucose POC Glucose Calcium AST ALT Troponin T 16.700 H* D Triglycerides 06/24/20 06/24/20 06/24/20 17:56 18:50 18:50 Hgb MCH MCHC 35 H RDW Lymph % (Auto) [place] % (Auto) 8.7 H [place] # (Auto) 0.9 H Seg Neutrophils % APTT Sodium 133 L Potassium Carbon Dioxide BUN Glucose 144 H POC Glucose 133 H Calcium AST 368 H ALT 67 H Troponin T Triglycerides 06/24/20 06/25/20 06/25/20 22:00 01:39 04:42 Hgb MCH MCHC RDW Lymph % (Auto) [place] % (Auto) 11.1 H [place] # (Auto) 1.1 H Seg Neutrophils % APTT Sodium Potassium Carbon Dioxide BUN Glucose POC Glucose 137 H 142 H Calcium AST ALT Troponin T Triglycerides 06/25/20 06/25/20 06/26/20 04:42 05:06 04:09 Hgb MCH MCHC RDW Lymph % (Auto) [place] % (Auto) [place] # (Auto) Seg Neutrophils % APTT Sodium 135 L 135 L Potassium 3.4 L Carbon Dioxide BUN 8 L Glucose 121 H 105 H POC Glucose 117 H Calcium 8.3 L AST ALT Troponin T 5.040 H* D Triglycerides Allied health notes reviewed: nursing
[2020-06-27] MEDS ORDERED: carvediloL 3.125 MG TAB PO SCH (22:00)
== END 2020-06-27 13:48 | disposition home or self-care (01) | DRG 270 ==
LOC: ED 04:40 → 4A 06:45 → CC1 10:17 → OBSVTOIN 06-25 11:16 → 4A 06-26 13:35
PROVIDERS: ADMIT Internal Medicine Geriatric Medicine; ATTEND Hospitalist
PROC: 4A023N7 Measurement of Cardiac Sampling and Pressure, Left Heart, Percutaneous Approach (ICD-10-PCS; principal; 2020-06-24)
PROC: 5A02210 Assistance with Cardiac Output using Balloon Pump, Continuous (ICD-10-PCS; 2020-06-24)
PROC: 027034Z Dilation of Coronary Artery, One Artery with Drug-eluting Intraluminal Device, Percutaneous Approach (ICD-10-PCS; 2020-06-24)
PROC: B2111ZZ Fluoroscopy of Multiple Coronary Arteries using Low Osmolar Contrast (ICD-10-PCS; 2020-06-24)
PROC: B2151ZZ Fluoroscopy of Left Heart using Low Osmolar Contrast (ICD-10-PCS; 2020-06-24)
PROC: B241ZZ3 Ultrasonography of Multiple Coronary Arteries, Intravascular (ICD-10-PCS; 2020-06-24)
PROC: 5A1223Z Performance of Cardiac Pacing, Continuous (ICD-10-PCS; 2020-06-24)
DX: I21.3 ST elevation (STEMI) myocardial infarction of unspecified site (principal); I46.9 Cardiac arrest, cause unspecified; I49.01 Ventricular fibrillation; I50.21 Acute systolic (congestive) heart failure; Z20.822 Contact with and (suspected) exposure to COVID-19; E66.9 Obesity, unspecified; F17.200 Nicotine dependence, unspecified, uncomplicated; E87.6 Hypokalemia; F10.10 Alcohol abuse, uncomplicated; F12.90 Cannabis use, unspecified, uncomplicated; I11.0 Hypertensive heart disease with heart failure; I25.119 Atherosclerotic heart disease of native coronary artery with unspecified angina pectoris; Z90.49 Acquired absence of other specified parts of digestive tract; Z68.29 Body mass index [BMI] 29.0-29.9, adult; Z82.49 Family history of ischemic heart disease and other diseases of the circulatory system
CPT/HCPCS: 33210; 33967; 36415; 71045; 80048; 80053; 80061; 80307; 82962; 84484; 85014; 85018; 85025; 85049; 85347; 85520; 85610; 85730; 92941; 92978; 93005; 93306; 93458; G0378; A9270-GY; C1725; C1753; C1874; C1887; C1894; C9606; J0171; J0282; J0330; J0360; J0461; J1644; J1650; J2250; J2270; J2370; J2405; J3010; J3246; J3480; J7060; Q9967; U0003

== ENCOUNTER 2020-09-06 14:58 | Emergency (ER) | payer SELFPAY ==
[2020-09-06 15:20] VITALS: BP 155/80
--- NOTE | 2020-09-06 15:25 | Event Note ---
ED Screening Note Date of service: 09/06/20 Time: 15:23 ED Screening Note: 30-year-old male presents to the ER today with complaints of shortness of breath, nonproductive cough, generalized fatigue, lower back pressure, and difficulty swallowing solid foods because he gets stuck in his chest for the past 2 days. Patient past medical history significant for an FL which happened June 24, 2020 status post 1 stent placement. He is currently on Plavix. He states that he used to smoke but quit smoking after his heart attack. He denies any other significant past history. This initial assessment/diagnostic orders/clinical plan/treatment(s) is/are subject to change based on patients health status, clinical progression and re- assessment by fellow clinical providers in the ED. Further treatment and workup at subsequent clinical providers discretion. Patient/guardian urged not to elope from the ED as their condition may be serious if not clinically assessed and managed. Initial orders include: Chest pain order set <ZEB ELDRIDGE - Last Filed: 09/06/20 15:23> ED Screening Note: This initial assessment/diagnostic orders/clinical plan/treatment(s) is/are subject to change based on patients health status, clinical progression and re-assessment by fellow clinical providers in the ED. Further treatment and workup at subsequent clinical providers discretion. Patient/guardian urged not to elope from the ED as their condition may be serious if not clinically assessed and managed. Initial orders include: EKG demonstrates sinus rhythm, approximately 100 bpm, with an extreme rightward axis deviation, nonspecific ST abnormality, biphasic T waves V4. The EKG is abnormal but not consistent with a STEMI. The EKG is transmitted to our immigration officer, Dr. Анна Springer, who has evaluated the current EKG from today, and the prior EKG from June. We are both in agreement that the patient does not require emergent activation of the cardiac catheterization lab. <EMIL SINGH - Last Filed: 09/06/20 15:42>
--- NOTE | 2020-09-06 15:51 | XRay Report ---
CHEST 2 VIEWS INDICATION / CLINICAL INFORMATION: Chest Pain. COMPARISON: 06/25/2020 FINDINGS: SUPPORT DEVICES: None. HEART / MEDIASTINUM: No significant abnormality. LUNGS / PLEURA: No significant pulmonary or pleural abnormality. No pneumothorax. ADDITIONAL FINDINGS: No significant additional findings. IMPRESSION: 1. No acute findings. Signer Name: Rogerio Gutierrez MD Signed: 09/06/2020 3:47 PM Workstation Name: [id number]
[2020-09-06 16:05] LABS: Basophils % (Auto) 0.7 % (0.0-1.8); Eosinophils # (Auto) 0.2 K/mm3 (0.0-0.4); Eosinophils % (Auto) 3.8 % (0.0-4.3); Hematocrit 48.7 % (35.5-45.6); Hemoglobin 17.2 gm/dl (11.8-15.2); Lymphocytes # (Auto) 1.6 K/mm3 (1.2-5.4); Lymphocytes % (Auto) 31.2 % (13.4-35.0); Mean Corpuscular HGB Conc 35 % (32-34); Mean Corpuscular Volume 95 fl (84-94); Monocytes # (Auto) 0.8 K/mm3 (0.0-0.8); Monocytes % (Auto) 14.9 % (0.0-7.3); Platelet Count 282 K/mm3 (140-440); Red Cell Distribution Width 14.2 % (13.2-15.2)
[2020-09-06 16:14] LABS: INR 0.93 (0.87-1.13)
[2020-09-06 16:15] LABS: Partial Thromboplastin Time 26.4 Sec. (24.2-36.6)
[2020-09-06 16:28] LABS: Alanine Aminotransferase 10 units/L (7-56); Albumin 4.4 g/dL (3.9-5); BUN/Creatinine Ratio 12; Blood Urea Nitrogen 11 mg/dL (9-20); Calcium 9.7 mg/dL (8.4-10.2); Hemolysis Index 14
--- NOTE | 2020-09-10 18:32 | Electrocardiograph Report ---
[facility] Test Date: 2020-09-06 Test Time: 15:22:46 Pat Name: CHARLEY VIERA Department: Room: Gender: M General Helper: GENNARO : 1990 Requested By: ZEB ELDRIDGE Order Number: [id number] Reading MD: Ranjit Barriga Measurements Intervals [place] Rate: 95 P: 63 SD: 131 QRS: 261 QRSD: 90 T: 96 QT: 353 QTc: 444 Interpretive Statements Sinus rhythm Right atrial enlargement Left anterior fascicular block Probable lateral infarct, age indeterminate Probable anteroseptal infarct, recent ST elevation, consider inferior injury Compared to ECG 06/25/2020 12:52:52 Atrial abnormality now present Left anterior fascicular block now present ST (T wave) deviation now present Electronically Signed On 09-10-2020 18:32:36 EDT by Ranjit Barriga
--- NOTE | 2020-09-10 18:50 | Electrocardiograph Report ---
[facility] Test Date: 2020-09-06 Test Time: 18:15:04 Pat Name: CHARLEY VIERA Department: Room: Gender: M Manager Plant: GENNARO : 1990 Requested By: AUTUMN SAUCEDA Order Number: [id number] Reading MD: Ranjit Barriga Measurements Intervals [place] Rate: 96 P: 62 [place]: 130 QRS: 262 QRSD: 86 T: 89 QT: 335 QTc: 424 Interpretive Statements Sinus rhythm Right atrial enlargement Left anterior fascicular block Anterior infarct, old Compared to ECG 09/06/2020 15:22:46 ST (T wave) deviation no longer present Myocardial infarct finding still present Electronically Signed On 09-10-2020 18:50:15 EDT by Ranjit Barriga
== END 2020-09-06 21:00 | disposition left against medical advice (07) ==
LOC: ED 14:58
DX: R06.02 Shortness of breath (principal); Z53.21 Procedure and treatment not carried out due to patient leaving prior to being seen by health care provider
CPT/HCPCS: 36415; 71046; 80053; 83690; 84484; 85025; 85610; 85730; 93005